=== PATIENT | female | born 1935 | race Hispanic/Latino ===

== ENCOUNTER 2018-04-03 19:35 | Inpatient (IN) | payer MEDICAID, MEDICARE ==
[2018-04-03] MEDS ORDERED: Sodium Chloride 0.9% 1,000 ML IV STA (20:29)
--- NOTE | 2018-04-03 20:32 | ED PDOC ---
HPI: General Adult Time Seen by Provider: 04/03/18 20:09 Chief Complaint (Nursing): GI Problem Chief Complaint (Provider): constipation History Per: Patient, Other (friend) History/Exam Limitations: no limitations Onset/Duration Of Symptoms: Days (1) Current Symptoms Are (Timing): Still Present Additional Complaint(s): 83 y/o female brought in by EMS with friend for evaluation of constipation x 1 day. Patient states her last bowel movement was yesterday, but today feels like she has to go but nothing is coming out. Patient found to be febrile upon arrival, states she was unaware. Patient states she has not been to a doctor in over one year, has homemakers that come to the house daily. Denies nausea/vomiting, cough, congestion, chest pain, shortness of breath, palpitations, abdominal pain, urinary symptoms, recent travel, sick contacts. Past Medical History Reviewed: Historical Data, Nursing Documentation, Vital Signs Vital Signs: Last Vital Signs Temp 102.8 F H 04/03/18 19:40 Pulse 130 H 04/03/18 19:40 Resp 18 04/03/18 19:40 BP 119/91 H 04/03/18 19:40 Pulse Ox 94 L 04/03/18 19:40 - Medical History PMH: HTN, Malignancy (endometrial CA, in remission) Denies: Chronic Kidney Disease - Surgical History Surgical History: Appendectomy, Cholecystectomy Other surgeries: hysterectomy - Family History Family History: States: No Known Family Hx - Living Arrangements Living Arrangements: With Family - Home Medications Home Medications: Ambulatory Orders Medication Instructions Recorded Propranolol [Inderal] 20 mg PO DAILY 01/17/15 Meclizine [Antivert] 12.5 mg PO DAILY 04/04/18 - Allergies Allergies/Adverse Reactions: Allergies Allergy/AdvReac Type Severity Reaction Status Date / Time diphenhydramine Allergy RASH Verified 04/03/18 19:45 [From Benadryl] morphine Allergy RASH Verified 04/03/18 19:45 Penicillins Allergy RASH Verified 04/03/18 19:45 Review of Systems ROS Statement: Except As Marked, All Systems Reviewed And Found Negative Gastrointestinal: Positive for: Constipation Physical Exam - Reviewed Nursing Documentation Reviewed: Yes Vital Signs Reviewed: Yes - Physical Exam Appears: Positive for: Well, Non-toxic, No Acute Distress Head Exam: Positive for: ATRAUMATIC, NORMAL INSPECTION, NORMOCEPHALIC Skin: Positive for: Rash (moderate erythema extending over flexor surface left elbow; mild purulent drainage noted. FROM. Warm to touch) Eye Exam: Positive for: Normal appearance ENT: Positive for: Normal ENT Inspection Cardiovascular/Chest: Positive for: Regular Rate, Rhythm Respiratory: Positive for: Normal Breath Sounds Gastrointestinal/Abdominal: Positive for: Normal Exam, Bowel Sounds, Soft. Negative for: Tenderness Back: Positive for: Normal Inspection, Other (4x2cm erythema to right sacrum, 4x3cm erythema to left sacrum. 0.5 ulceration inner right gluteus) Extremity: Positive for: Normal ROM Neurologic/Psych: Positive for: Alert, Oriented (x3) - Laboratory Results Result Diagrams: 04/03/18 21:40 04/03/18 22:15 - ECG ECG: Positive for: Viewed By Me (reviewed by ED attending) ECG Rhythm: Positive for: Sinus Tachycardia O2 Sat by Pulse Oximetry: 94 - Other Rad obstructive series xray X-Ray: Viewed By Me X-Ray Interpretation: no acute findings - Progress ED Course And Treament: labs, urine, ekg, obstructive series xray, influenza, IV fluids, PO tylenol Case discussed with ED attending Dr. Patel, CT chest/abd/pelvis ordered to r/out PE (malignancy history, tachycardia, hypoxemia, fever), and intra abdominal infection Patient refusing CT; states she has had too many in the past and does not want it. Patient educated on reason for ordering CT and risks if missed. Patient awake, alert, oriented x3. Demonstrates full understanding of these potential risks and still refuses Multiple attempts to straight cath for urine without success. Patient refusing further attempts external catheter applied IV vanco ordered for cellulitis of left arm Patient agreeable for admission but refusing repeat lactic acid at this time Case discussed with Dr. Pierre for admission Disposition - Clinical Impression Clinical Impression: Left arm cellulitis, Sepsis - Patient ED Disposition Is Patient to be Admitted: Yes - Disposition Disposition Time: 04:57 Condition: STABLE
[2018-04-03 21:55] LABS: BASO % 0.1 % (0.0-2.0); EOS % 0.2 % (0.0-4.0); HEMOGLOBIN 14.5 g/dL (12.0-16.0); LYMPH # 0.7 K/uL (1.0-4.3); LYMPH % 3.3 % (20.0-40.0); MEAN CELL VOLUME 87.3 fl (81.0-99.0); MEAN CORPUSCULAR HEMOGLOBIN 29.6 pg (27.0-31.0); MEAN CORPUSCULAR HGB CONC 33.9 g/dL (33.0-37.0); MEAN PLATELET VOLUME 7.9 fl (7.2-11.7); MONO # 0.9 K/uL (0.0-0.8); MONO % 4.6 % (0.0-10.0); NEUT % 91.8 % (50.0-75.0); NRBC % 0.1 % (0.0-0.0); PLATELET COUNT 234 K/uL (130-400); RED CELL DISTRIBUTION WIDTH 15.8 % (11.5-14.5); WHITE BLOOD COUNT 19.7 K/uL (4.8-10.8)
[2018-04-03 22:03] LABS: VENOUS BLOOD GAS BASE EXCESS 6.2 mmol/L (0.0-2.0); VENOUS BLOOD GAS PCO2 42 mmHg (40-60); VENOUS BLOOD GAS PO2 43 mm/Hg (30-55); VENOUS BLOOD PH 7.47 (7.32-7.43)
[2018-04-03 22:37] LABS: ALBUMIN 3.4 g/dL (3.5-5.0); ALT/SGPT 22 U/L (9-52); AST/SGOT 30 U/L (14-36); BLOOD UREA NITROGEN 17 mg/dl (7-17); CALCIUM 8.8 mg/dL (8.4-10.2); GFR NON-AFRICAN AMERICAN > 60
[2018-04-03 22:41] LABS: BANDS 6 % (0-2); LYMPHOCYTE 6 % (20-50); MONOCYTE 7 % (0-10); MYELOCYTE 1 % (0-0); NEUTROPHIL 79 % (42-75); REACTIVE LYMPHOCYTES 1 % (0-0); TOTAL CELLS COUNTED 100
[2018-04-03 22:42] LABS: PLATELET ESTIMATE NORMAL (NORMAL)
[2018-04-03 22:43] LABS: SMUDGE CELLS PRESENT; TOXIC GRANULATION PRESENT
[2018-04-04] MEDS ORDERED: Sodium Chloride 0.9% 1,000 ML IV STA ×2 (00:46→03:21)
[2018-04-04] MEDS ORDERED: Vancomycin 1 g Inj ONE (06:23)
--- NOTE | 2018-04-04 07:07 | CARD ---
APPROVED REPORT Date of service: 04/03/2018 EKG Measurement Heart [id number] [id number] <Conclusion> Sinus tachycardia Possible Inferior infarct, age undetermined Abnormal ECG
[2018-04-04 07:22] LABS: SQUAMOUS EPITHIAL 1 /hpf (0-5); URINE BILIRUBIN NEGATIVE (NEGATIVE); URINE BLOOD MODERATE (NEGATIVE); URINE CLARITY CLEAR (Clear); URINE COLOR AMBER (YELLOW); URINE GLUCOSE (UA) NEG (Normal); URINE LEUKOCYTE ESTERASE MOD Leu/uL (Negative); URINE PROTEIN NEGATIVE (NEGATIVE)
--- NOTE | 2018-04-04 08:10 | CP.PCM.HP ---
<Lauren Alves - Last Filed: 04/04/18 13:10> History of Present Illness - History of Present Illness History of Present Illness: Case seen and examined with Dr Pierre in ED 83 y/o female brought in by EMS and friend for evaluation of constipation x 1 day. Patient states her last bowel movement was yesterday, but today feels like she has to go but nothing is coming out. Patient found to be febrile upon ED arrival and she endorses she was unaware. There is a erythematous area in LUE no tender but warm to touch, pt didnt noticed. She denies nausea/vomiting, chills, cough, congestion, chest pain, shortness of breath, palpitations, abdominal pain, urinary symptoms, recent travel, sick contacts. No recent illness. Patient states she has not been to a doctor in over one year, has homemakers that come to the house daily. Present on Admission - Present on Admission Any Indicators Present on Admission: No Review of Systems - Review of Systems All systems: reviewed and no additional remarkable complaints except (HPI) Past Patient History - Past Medical History & Family History Past Medical History?: Yes - Past Social History Smoking Status: Former Smoker - CARDIAC Hx Hypertension: Yes - PULMONARY Hx Respiratory Disorders: No - NEUROLOGICAL Hx Neurological Disorder: Yes (Cerebral Palsy) - HEENT Hx HEENT Problems: Yes Other/Comment: Glasses - RENAL Hx Chronic Kidney Disease: No - ENDOCRINE/METABOLIC Hx Endocrine Disorders: No - HEMATOLOGICAL/ONCOLOGICAL Hx Blood Disorders: No Hx Blood Transfusions: Yes Hx Blood Transfusion Reaction: No Hx Cancer: Yes (Uterine cancer) Hx Chemotherapy: Yes - INTEGUMENTARY Hx Dermatological Problems: No - MUSCULOSKELETAL/RHEUMATOLOGICAL Hx Musculoskeletal Disorders: Yes Hx Falls: No Hx Unsteady Gait: Yes - GASTROINTESTINAL Hx Gastrointestinal Disorders: Yes Hx Constipation: Yes - GENITOURINARY/GYNECOLOGICAL Hx Genitourinary Disorders: Yes Other/Comment: Endometrial Cancer - PSYCHIATRIC Hx Psychophysiologic Disorder: No Hx Substance Use: No - SURGICAL HISTORY Hx Appendectomy: Yes Hx Cholecystectomy: Yes - ANESTHESIA Hx Anesthesia: Yes Hx Anesthesia Reactions: No Hx Malignant Hyperthermia: No Meds Allergies/Adverse Reactions: Allergies Allergy/AdvReac Type Severity Reaction Status Date / Time diphenhydramine Allergy RASH Verified 04/03/18 19:45 [From Benadryl] morphine Allergy RASH Verified 04/03/18 19:45 Penicillins Allergy RASH Verified 04/03/18 19:45 Physical Exam - Constitutional Appears: No Acute Distress - Head Exam Head Exam: NORMAL INSPECTION - Eye Exam Eye Exam: EOMI - Respiratory Exam Respiratory Exam: Clear to Auscultation Bilateral - Cardiovascular Exam Cardiovascular Exam: REGULAR RHYTHM, +S1, +S2 - GI/Abdominal Exam GI & Abdominal Exam: Normal Bowel Sounds, Soft. absent: Distended, Tenderness - Extremities Exam Extremities exam: Negative for: pedal edema - Neurological Exam Neurological exam: Alert, Oriented x3 - Skin Skin Exam: Dry, Warm Additional comments: moderate erythema extending over flexor surface left elbow; mild purulent drainage noted, warm to touch, nontender. Results - Vital Signs Recent Vital Signs: Last Vital Signs Temp 98.2 F 04/04/18 07:56 Pulse 82 04/04/18 07:56 Resp 16 04/04/18 07:56 BP 153/86 H 04/04/18 07:56 Pulse Ox 100 04/04/18 07:56 - Labs Result Diagrams: 04/03/18 21:40 04/03/18 22:15 Labs: Laboratory Results - last 24 hr 04/03/18 04/03/18 04/03/18 21:40 21:40 22:00 WBC 19.7 H D RBC 4.90 Hgb 14.5 Hct 42.8 MCV 87.3 D MCH 29.6 MCHC 33.9 RDW 15.8 H Plt Count 234 D MPV 7.9 Neut % (Auto) 91.8 H Lymph % (Auto) 3.3 L Woods % (Auto) 4.6 Eos % (Auto) 0.2 Baso % (Auto) 0.1 Neut # (Auto) 18.0 H Lymph # (Auto) 0.7 L Woods # (Auto) 0.9 H Eos # (Auto) 0.0 Baso # (Auto) 0.0 Neutrophils % (Manual) 79 H Band Neutrophils % 6 H Lymphocytes % (Manual) 6 L Reactive Lymphs % 1 H Monocytes % (Manual) 7 Myelocytes % 1 H Smudge Cells Present Toxic Granulation Present Platelet Estimate Normal Macrocytosis (manual) Slight pO2 43 VBG pH 7.47 H VBG pCO2 42 VBG HCO3 29.3 VBG Total CO2 31.9 H VBG O2 Sat (Calc) 86.4 H VBG Base Excess 6.2 H VBG Potassium 4.3 Sodium 138.0 Chloride 103.0 Glucose 175 H Lactate 2.1 FiO2 21.0 Potassium Carbon Dioxide Anion Gap BUN Creatinine Est GFR ( Amer) Est GFR (Non-Af Amer) Random Glucose Calcium Total Bilirubin AST ALT Alkaline Phosphatase Total Protein Albumin Globulin Albumin/Globulin Ratio Venous Blood Potassium 4.3 Urine Color Urine Clarity Urine pH Ur Specific Ingalls Urine Protein Urine Glucose (UA) Urine Ketones Urine Blood Urine Nitrate Urine Bilirubin Urine Urobilinogen Ur Leukocyte Esterase Urine RBC (Auto) Urine Microscopic WBC Ur Squamous Epith Cells Influenza Typ A,B (EIA) Negative for flu a/b 04/03/18 04/04/18 22:15 06:54 WBC RBC Hgb Hct MCV MCH MCHC RDW Plt Count MPV Neut % (Auto) Lymph % (Auto) Woods % (Auto) Eos % (Auto) Baso % (Auto) Neut # (Auto) Lymph # (Auto) Woods # (Auto) Eos # (Auto) Baso # (Auto) Neutrophils % (Manual) Band Neutrophils % Lymphocytes % (Manual) Reactive Lymphs % Monocytes % (Manual) Myelocytes % Smudge Cells Toxic Granulation Platelet Estimate Macrocytosis (manual) pO2 VBG pH VBG pCO2 VBG HCO3 VBG Total CO2 VBG O2 Sat (Calc) VBG Base Excess VBG Potassium Sodium 139 Chloride 106 Glucose Lactate FiO2 Potassium 3.5 L Carbon Dioxide 25 Anion Gap 12 BUN 17 Creatinine 0.9 Est GFR ( Amer) > 60 Est GFR (Non-Af Amer) > 60 Random Glucose 160 H Calcium 8.8 Total Bilirubin 0.8 AST 30 ALT 22 Alkaline Phosphatase 83 Total Protein 6.9 Albumin 3.4 L Globulin 3.5 Albumin/Globulin Ratio 1.0 Venous Blood Potassium Urine Color Sushila Urine Clarity Clear Urine pH 5.0 Ur Specific Ingalls 1.018 Urine Protein Negative Urine Glucose (UA) Neg Urine Ketones Negative Urine Blood Moderate Urine Nitrate Positive H Urine Bilirubin Negative Urine Urobilinogen 2.0 H Ur Leukocyte Esterase Mod Urine RBC (Auto) 8 H Urine Microscopic WBC 17 H Ur Squamous Epith Cells 1 Influenza Typ A,B (EIA) Assessment & Plan - Assessment and Plan (Free Text) Assessment: 83 yo Female with PMH of HTN admitted due to LUE cellulitis and sepsis Plan: - Febrile, tachycardia, BP wnl - WBC 19.7, lactate 2.1 - abd XR negative for obstruction - IV fluids, continue IV abx - f/u cultures and labs in am - f/u echo - continue home meds - rest of plan as ordered <Maulik Pierre - Last Filed: 04/06/18 15:50> Results - Vital Signs Recent Vital Signs: Last Vital Signs Temp 97.8 F 04/06/18 07:59 Pulse 88 04/06/18 07:59 Resp 19 04/06/18 07:59 BP 149/82 04/06/18 07:59 Pulse Ox 97 04/06/18 07:59 - Labs Result Diagrams: 04/06/18 05:55 04/06/18 05:55 Labs: Laboratory Results - last 24 hr 04/06/18 04/06/18 05:55 05:55 WBC 7.9 RBC 4.72 Hgb 13.9 Hct 42.3 MCV 89.5 MCH 29.4 MCHC 32.8 L RDW 15.8 H Plt Count 169 Sodium 141 Potassium 4.2 Chloride 108 H Carbon Dioxide 21 L Anion Gap 16 BUN 13 Creatinine 0.7 Est GFR ( Amer) > 60 Est GFR (Non-Af Amer) > 60 Random Glucose 89 Calcium 8.1 L Assessment & Plan - Assessment and Plan (Free Text) Assessment: Patient was personally seen and examined by me in rounds with residents. Available labs and diagnostic data reviewed. Case, Patient's condition and management plan discussed with residents in rounds . Agree with resident's progress note. Plan: As ordered.
[2018-04-04] MEDS: Enoxaparin 40 mg Syringe SC SCH (10:04)
--- NOTE | 2018-04-04 10:37 | RAD ---
Date of service: 04/03/2018 PROCEDURE: Radiographs of the chest and abdomen (obstructive series) HISTORY: constipation COMPARISON: No prior. TECHNIQUE: AP radiograph of the chest, with upright and supine radiographs of the abdomen. FINDINGS: CHEST: Lungs: Low lung volumes. Cardiovascular: Aortic atherosclerotic calcifications. Normal size heart. No pulmonary vascular congestion. Pleura: No pleural fluid. No pneumothorax. Other findings: Left subclavian access chest port with tip at the cavoatrial junction. ABDOMEN AND PELVIS: Bowel: Unremarkable bowel gas pattern. No evidence of mechanical obstruction. Free air: None. Bones: Degenerative changes. Other findings: Right upper quadrant and pelvic surgical clips. IMPRESSION: Unremarkable radiographs of chest and abdomen. No evidence of mechanical bowel obstruction.
--- NOTE | 2018-04-04 12:15 | CARD ---
APPROVED REPORT Date of service: 04/04/2018 EXAM: Two-dimensional and M-mode echocardiogram with Doppler and color Doppler. Other Information Quality : FairRhythm : NSR Technically limited study due to Poor echo windows,due to pt Habitus INDICATION Infection: 2D DIMENSIONS IVSd0.69 (0.7-1.1cm)LVDd2.61 (3.9-5.9cm) LVOT Diameter1.51 (1.8-2.4cm)PWd0.53 (0.7-1.1cm) IVSs0.84 (0.8-1.2cm)LVDs2.36 (2.5-4.0cm) FS (%) 9.7 %PWs0.85 (0.8-1.2cm) M-Mode DIMENSIONS Left Atrium (MM)2.93 (2.5-4.0cm)IVSd0.75 (0.7-1.1cm) Aortic Root2.75 (2.2-3.7cm)LVDd3.04 (4.0-5.6cm) Aortic Cusp Exc.1.42 (1.5-2.0cm)PWd0.77 (0.7-1.1cm) IVSs1.06 cmFS (%) 38 % LVDs1.88 (2.0-3.8cm)PWs1.03 cm Mitral Valve MV E Wmncouze23.8cm/sMV DECEL [id number] A Zhidzxxa03.4cm/s MV [id number]/A ratio1.3MVA (PHT)4.58cm2 TDI E/Lateral E'0.0E/Medial E'0.0 LEFT VENTRICLE The left ventricle is normal size. There is normal left ventricular wall thickness. The left ventricular systolic function is normal. The estimated ejection fraction is 55-60% No regional wall motion abnormalities noted.. Transmitral Doppler flow pattern is Grade I-abnormal relaxation pattern. No left ventricle thrombus noted on this study. There is no ventricular septal defect visualized. There is no left ventricular aneurysm. There is no mass noted in the left ventricle. RIGHT VENTRICLE The right ventricle is normal size. There is normal right ventricular wall thickness. The right ventricular systolic function is normal. ATRIA The left atrium size is normal. The right atrium size is normal. The interatrial septum is intact with no evidence for an atrial septal defect. AORTIC VALVE The aortic valve is normal in structure. No aortic regurgitation is present. There is no aortic valvular stenosis. There is no aortic valvular vegetation. MITRAL VALVE The mitral valve is normal in structure. There is no evidence of mitral valve prolapse. There is no mitral valve stenosis. There is mild mitral valve regurgitation noted. TRICUSPID VALVE The tricuspid valve is normal in structure. There is no tricuspid valve regurgitation noted. There is no tricuspid valve prolapse or vegetation. There is no tricuspid valve stenosis. PULMONIC VALVE The pulmonary valve is normal in structure. There is no pulmonic valvular regurgitation. There is no pulmonic valvular stenosis. GREAT VESSELS The aortic root is normal in size. The ascending aorta is normal in size. The pulmonary artery is normal. The IVC is normal in size and collapses >50% with inspiration. PERICARDIAL EFFUSION There is no pericardial effusion. There is no pleural effusion. <Conclusion> Technically difficult study The estimated ejection fraction is 55-60% Transmitral Doppler flow pattern is Grade I-abnormal relaxation pattern. The left atrium size is normal. There is mild mitral valve regurgitation noted. No evidence of vegetations on this study. Correlate clinically.
[2018-04-04 13:59] VITALS: BMI 26.5
[2018-04-05 06:31] LABS: BASO # 0.1 K/uL (0.0-0.2); BASO % 0.7 % (0.0-2.0); EOS # 0.2 K/uL (0.0-0.7); EOS % 2.8 % (0.0-4.0); HEMOGLOBIN 12.9 g/dL (12.0-16.0); LYMPH # 1.5 K/uL (1.0-4.3); LYMPH % 19.9 % (20.0-40.0); MEAN CELL VOLUME 89.2 fl (81.0-99.0); MEAN CORPUSCULAR HEMOGLOBIN 29.7 pg (27.0-31.0); MEAN CORPUSCULAR HGB CONC 33.3 g/dL (33.0-37.0); MEAN PLATELET VOLUME 7.3 fl (7.2-11.7); MONO # 0.7 K/uL (0.0-0.8); MONO % 9.5 % (0.0-10.0); NEUT # 5.2 K/uL (1.8-7.0); NEUT % 67.1 % (50.0-75.0); NRBC % 0.1 % (0.0-0.0); RBC 4.34 Mil/uL (3.80-5.20); RED CELL DISTRIBUTION WIDTH 15.6 % (11.5-14.5); WHITE BLOOD COUNT 7.7 K/uL (4.8-10.8)
[2018-04-05 06:48] LABS: ALB/GLOB RATIO 0.9 (1.0-2.1); ALT/SGPT 21 U/L (9-52); AST/SGOT 26 U/L (14-36); BLOOD UREA NITROGEN 13 mg/dl (7-17); CALCIUM 8.1 mg/dL (8.4-10.2); GFR NON-AFRICAN AMERICAN > 60
--- NOTE | 2018-04-05 07:23 | CP.PCM.PN ---
<MartinezPradeep - Last Filed: 04/05/18 18:41> Subjective - Date & Time of Evaluation Date of Evaluation: 04/05/18 Time of Evaluation: 06:55 - Subjective Subjective: 83 y/o F was seen and examined with Dr Pierre by bedside. Pt reports feeling well, denies left arm pain, chest pain, SOB, nausea, or vomiting. Pt afebrile with no acute events overnight. Pt reported diarrhea for the last 2 days but pt endorses that she has intermittent diarrhea episodes every week. Objective - Vital Signs/Intake and Output Vital Signs (last 24 hours): Temp Pulse Resp BP Pulse Ox 97.2 F L 84 20 137/66 99 04/05/18 00:04 04/05/18 00:04 04/05/18 00:04 04/05/18 00:04 04/05/18 00:04 - Medications Medications: Current Medications Acetaminophen (Tylenol 325mg Tab) 650 mg PO Q6 PRN PRN Reason: Fever >100.4 F Enoxaparin Sodium (Lovenox) 40 mg SC DAILY [facility]; Protocol Last Admin: 04/04/18 10:04 Dose: 40 mg Vancomycin HCl 1 gm/ Sodium (Chloride) 250 mls @ 166.667 mls/hr IVPB Q12@0600,1800 [facility]; Protocol Last Admin: 04/05/18 06:23 Dose: 166.667 mls/hr Meclizine HCl (Antivert) 12.5 mg PO DAILY [facility] Last Admin: 04/04/18 18:44 Dose: 12.5 mg Propranolol HCl (Inderal) 20 mg PO DAILY [facility] Last Admin: 04/04/18 09:09 Dose: 20 mg - Labs Labs: 04/05/18 04:55 04/05/18 04:55 - Constitutional Appears: No Acute Distress - Head Exam Head Exam: ATRAUMATIC, NORMAL INSPECTION - Eye Exam Eye Exam: EOMI - ENT Exam ENT Exam: Mucous Membranes Dry - Neck Exam Neck Exam: Full ROM. absent: Tenderness - Respiratory Exam Respiratory Exam: NORMAL BREATHING PATTERN. absent: Rhonchi, Wheezes, Respiratory Distress - Cardiovascular Exam Cardiovascular Exam: REGULAR RHYTHM, +S1, +S2 - GI/Abdominal Exam GI & Abdominal Exam: Soft, Normal Bowel Sounds. absent: Distended, Guarding, Rigid, Tenderness - Extremities Exam Extremities Exam: absent: Calf Tenderness - Neurological Exam Neurological Exam: Alert, Awake - Skin Additional comments: Left cubital area: presence of ~7cm diameter erythema taht is non-tender, warm to touch and seems not extending since yesterday. Assessment and Plan - Assessment and Plan (Free Text) Assessment: 83 yo Female with PMH of HTN admitted due to LUE cellulitis and sepsis. PLAN: --Afebrile, stable VS --WBC trended down, WNL today. --Continue with Vancomycin --Probiotics for GI prophylaxis. --Blood Cx with NO growth in 24 hrs --Echocardiogram shows NO vegetations. --Rest of plan as ordered Case discussed with Dr Pierre. <Maulik Pierre - Last Filed: 04/06/18 15:49> Objective - Vital Signs/Intake and Output Vital Signs (last 24 hours): Temp Pulse Resp BP Pulse Ox 97.8 F 88 19 149/82 97 04/06/18 07:59 04/06/18 07:59 04/06/18 07:59 04/06/18 07:59 04/06/18 07:59 - Medications Medications: Current Medications Acetaminophen (Tylenol 325mg Tab) 650 mg PO Q6 PRN PRN Reason: Fever >100.4 F Dimethicone (Proshield Plus Skin Protectant) 1 applic TOP Q8 PRN PRN Reason: Excoriation Last Admin: 04/06/18 08:21 Dose: 1 applic Enoxaparin Sodium (Lovenox) 40 mg SC DAILY [facility]; Protocol Last Admin: 04/06/18 08:21 Dose: 40 mg Vancomycin HCl 1 gm/ Sodium (Chloride) 250 mls @ 166.667 mls/hr IVPB Q12@0600,1800 [facility]; Protocol Last Admin: 04/06/18 05:50 Dose: 166.667 mls/hr Meropenem 500 mg/ Sodium (Chloride) 100 mls @ 100 mls/hr IVPB Q8 [facility]; Protocol Last Admin: 04/06/18 08:20 Dose: 100 mls/hr Lactobacillus Acidophilus (Bacid Acidophilus) 1 cap PO BID [facility] Last Admin: 04/06/18 08:21 Dose: 1 cap Meclizine HCl (Antivert) 12.5 mg PO DAILY [facility] Last Admin: 04/06/18 08:22 Dose: 12.5 mg Propranolol HCl (Inderal) 20 mg PO DAILY [facility] Last Admin: 04/06/18 08:22 Dose: 20 mg - Labs Labs: 04/06/18 05:55 04/06/18 05:55 Assessment and Plan - Assessment and Plan (Free Text) Assessment: Patient was personally seen and examined by me in rounds with residents. Available labs and diagnostic data reviewed. Case, Patient's condition and management plan discussed with residents in r ounds. Agree with resident's progress note. Plan: As ordered.
[2018-04-05] MEDS: Lactobacillus Acidophilus 500 MU Cap PO SCH ×2 (08:25→16:04)
[2018-04-05] MEDS: Enoxaparin 40 mg Syringe SC SCH (08:26)
[2018-04-05] MEDS: Meropenem 500 MG in Sodium Chloride 0.9% 100 ML IVPB SCH (16:02)
--- NOTE | 2018-04-05 18:06 | CP.PCM.CON ---
Past Patient History - Past Medical History & Family History Past Medical History?: Yes - Past Social History Smoking Status: Never Smoked - CARDIAC Hx Hypertension: Yes - PULMONARY Hx Respiratory Disorders: No - NEUROLOGICAL Hx Neurological Disorder: Yes (Cerebral Palsy) - HEENT Hx HEENT Problems: Yes Other/Comment: Glasses - RENAL Hx Chronic Kidney Disease: No - ENDOCRINE/METABOLIC Hx Endocrine Disorders: No - HEMATOLOGICAL/ONCOLOGICAL Hx Blood Disorders: No Hx Blood Transfusions: Yes Hx Blood Transfusion Reaction: No Hx Cancer: Yes (Uterine cancer) Hx Chemotherapy: Yes - INTEGUMENTARY Hx Dermatological Problems: No - MUSCULOSKELETAL/RHEUMATOLOGICAL Hx Musculoskeletal Disorders: Yes Hx Falls: No Hx Unsteady Gait: Yes - GASTROINTESTINAL Hx Gastrointestinal Disorders: Yes Hx Constipation: Yes - GENITOURINARY/GYNECOLOGICAL Hx Genitourinary Disorders: Yes Other/Comment: Endometrial Cancer - PSYCHIATRIC Hx Psychophysiologic Disorder: No Hx Substance Use: No - SURGICAL HISTORY Hx Appendectomy: Yes Hx Cholecystectomy: Yes - ANESTHESIA Hx Anesthesia: Yes Hx Anesthesia Reactions: No Hx Malignant Hyperthermia: No Meds Allergies/Adverse Reactions: Allergies Allergy/AdvReac Type Severity Reaction Status Date / Time diphenhydramine Allergy RASH Verified 04/03/18 19:45 [From Benadryl] morphine Allergy RASH Verified 04/03/18 19:45 Penicillins Allergy RASH Verified 04/03/18 19:45 - Medications Medications: Current Medications Acetaminophen (Tylenol 325mg Tab) 650 mg PO Q6 PRN PRN Reason: Fever >100.4 F Dimethicone (Proshield Plus Skin Protectant) 1 applic TOP Q8 PRN PRN Reason: Excoriation Enoxaparin Sodium (Lovenox) 40 mg SC DAILY [facility]; Protocol Last Admin: 04/05/18 08:26 Dose: 40 mg Vancomycin HCl 1 gm/ Sodium (Chloride) 250 mls @ 166.667 mls/hr IVPB Q12@0600,1800 [facility]; Protocol Last Admin: 04/05/18 17:00 Dose: 166.667 mls/hr Meropenem 500 mg/ Sodium (Chloride) 100 mls @ 100 mls/hr IVPB Q8 [facility]; Protocol Last Admin: 04/05/18 16:02 Dose: 100 mls/hr Lactobacillus Acidophilus (Bacid Acidophilus) 1 cap PO BID [facility] Last Admin: 04/05/18 16:04 Dose: 1 cap Meclizine HCl (Antivert) 12.5 mg PO DAILY [facility] Last Admin: 04/05/18 08:26 Dose: 12.5 mg Propranolol HCl (Inderal) 20 mg PO DAILY [facility] Last Admin: 04/05/18 08:26 Dose: 20 mg Results - Vital Signs Recent Vital Signs: Last Vital Signs Temp 97.9 F 04/05/18 16:30 Pulse 79 04/05/18 16:30 Resp 20 04/05/18 16:30 BP 138/78 04/05/18 16:30 Pulse Ox 99 04/05/18 16:30 - Labs Result Diagrams: 04/05/18 04:55 04/05/18 04:55 Labs: Laboratory Results - last 24 hr 04/05/18 04/05/18 04:55 04:55 WBC 7.7 D RBC 4.34 Hgb 12.9 Hct 38.7 MCV 89.2 MCH 29.7 MCHC 33.3 RDW 15.6 H Plt Count 166 MPV 7.3 Neut % (Auto) 67.1 Lymph % (Auto) 19.9 L Wilson % (Auto) 9.5 Eos % (Auto) 2.8 Baso % (Auto) 0.7 Neut # (Auto) 5.2 Lymph # (Auto) 1.5 Wilson # (Auto) 0.7 Eos # (Auto) 0.2 Baso # (Auto) 0.1 Sodium 143 Potassium 4.4 Chloride 109 H Carbon Dioxide 24 Anion Gap 14 BUN 13 Creatinine 0.8 Est GFR ( Amer) > 60 Est GFR (Non-Af Amer) > 60 Random Glucose 87 Calcium 8.1 L Total Bilirubin 0.4 AST 26 ALT 21 Alkaline Phosphatase 56 Total Protein 6.3 Albumin 3.0 L Globulin 3.3 Albumin/Globulin Ratio 0.9 L
[2018-04-06] MEDS: Meropenem 500 MG in Sodium Chloride 0.9% 100 ML IVPB SCH ×3 (00:35→16:27)
[2018-04-06 06:46] LABS: BLOOD UREA NITROGEN 13 mg/dl (7-17); CALCIUM 8.1 mg/dL (8.4-10.2); GFR NON-AFRICAN AMERICAN > 60
[2018-04-06 06:49] LABS: HEMOGLOBIN 13.9 g/dL (12.0-16.0); MEAN CELL VOLUME 89.5 fl (81.0-99.0); MEAN CORPUSCULAR HEMOGLOBIN 29.4 pg (27.0-31.0); MEAN CORPUSCULAR HGB CONC 32.8 g/dL (33.0-37.0); RBC 4.72 Mil/uL (3.80-5.20); RED CELL DISTRIBUTION WIDTH 15.8 % (11.5-14.5); WHITE BLOOD COUNT 7.9 K/uL (4.8-10.8)
--- NOTE | 2018-04-06 07:16 | CP.PCM.PN ---
<Pradeep Henriquez - Last Filed: 04/06/18 08:04> Subjective - Date & Time of Evaluation Date of Evaluation: 04/06/18 Time of Evaluation: 06:59 - Subjective Subjective: 83 y/o f was seen and examined by bedside with Dr Pierre. Pt reports feeling well, denied fever, chills, abdominal pain, nausea or vomiting. Left arm is painless. Pt afebrile, tolerating PO with NO acute events overnight. --Wound culture and Blood culture are showing Gram Negative Rods. Objective - Vital Signs/Intake and Output Vital Signs (last 24 hours): Temp Pulse Resp BP Pulse Ox 99.3 F 88 18 152/84 H 96 04/06/18 00:28 04/06/18 00:28 04/06/18 00:28 04/06/18 00:28 04/06/18 00:28 - Medications Medications: Current Medications Acetaminophen (Tylenol 325mg Tab) 650 mg PO Q6 PRN PRN Reason: Fever >100.4 F Dimethicone (Proshield Plus Skin Protectant) 1 applic TOP Q8 PRN PRN Reason: Excoriation Enoxaparin Sodium (Lovenox) 40 mg SC DAILY [facility]; Protocol Last Admin: 04/05/18 08:26 Dose: 40 mg Vancomycin HCl 1 gm/ Sodium (Chloride) 250 mls @ 166.667 mls/hr IVPB Q12@0600,1800 [facility]; Protocol Last Admin: 04/06/18 05:50 Dose: 166.667 mls/hr Meropenem 500 mg/ Sodium (Chloride) 100 mls @ 100 mls/hr IVPB Q8 [facility]; Protocol Last Admin: 04/06/18 00:35 Dose: 100 mls/hr Lactobacillus Acidophilus (Bacid Acidophilus) 1 cap PO BID [facility] Last Admin: 04/05/18 16:04 Dose: 1 cap Meclizine HCl (Antivert) 12.5 mg PO DAILY [facility] Last Admin: 04/05/18 08:26 Dose: 12.5 mg Propranolol HCl (Inderal) 20 mg PO DAILY [facility] Last Admin: 04/05/18 08:26 Dose: 20 mg - Labs Labs: 04/06/18 05:55 04/06/18 05:55 - Additional Findings Additional findings: - Constitutional Appears: No Acute Distress - Head Exam Head Exam: ATRAUMATIC, NORMAL INSPECTION - Eye Exam Eye Exam: EOMI - ENT Exam ENT Exam: Mucous Membranes Dry - Neck Exam Neck Exam: Full ROM. absent: Tenderness - Respiratory Exam Respiratory Exam: NORMAL BREATHING PATTERN. absent: Rhonchi, Wheezes, Respiratory Distress - Cardiovascular Exam Cardiovascular Exam: REGULAR RHYTHM, +S1, +S2 - GI/Abdominal Exam GI & Abdominal Exam: Soft, Normal Bowel Sounds. absent: Distended, Guarding, Rigid, Tenderness - Extremities Exam Extremities Exam: absent: Calf Tenderness - Neurological Exam Neurological Exam: Alert, Awake - Skin Additional comments: Left cubital area: presence of ~6 cm diameter erythema taht is non-tender, warm to touch and seems not extending since yesterday. Assessment and Plan - Assessment and Plan (Free Text) Assessment: 83 yo Female with PMH of HTN admitted due to LUE cellulitis and sepsis. PLAN: --Afebrile, stable VS --WBC trended down, WNL today. --Continue with Vancomycin --Meropenem was added since blood culture and wound culture are showing Gram neg rods. --ID consult, Dr Wolfe, ordered. --Probiotics for GI prophylaxis. --Echocardiogram shows NO vegetations. --Rest of plan as ordered Case discussed with Dr Pierre. <Maulik Pierre - Last Filed: 04/06/18 15:41> Objective - Vital Signs/Intake and Output Vital Signs (last 24 hours): Temp Pulse Resp BP Pulse Ox 97.8 F 88 19 149/82 97 04/06/18 07:59 04/06/18 07:59 04/06/18 07:59 04/06/18 07:59 04/06/18 07:59 - Medications Medications: Current Medications Acetaminophen (Tylenol 325mg Tab) 650 mg PO Q6 PRN PRN Reason: Fever >100.4 F Dimethicone (Proshield Plus Skin Protectant) 1 applic TOP Q8 PRN PRN Reason: Excoriation Last Admin: 04/06/18 08:21 Dose: 1 applic Enoxaparin Sodium (Lovenox) 40 mg SC DAILY [facility]; Protocol Last Admin: 04/06/18 08:21 Dose: 40 mg Vancomycin HCl 1 gm/ Sodium (Chloride) 250 mls @ 166.667 mls/hr IVPB Q12@0600,1800 [facility]; Protocol Last Admin: 04/06/18 05:50 Dose: 166.667 mls/hr Meropenem 500 mg/ Sodium (Chloride) 100 mls @ 100 mls/hr IVPB Q8 [facility]; Protocol Last Admin: 04/06/18 08:20 Dose: 100 mls/hr Lactobacillus Acidophilus (Bacid Acidophilus) 1 cap PO BID [facility] Last Admin: 04/06/18 08:21 Dose: 1 cap Meclizine HCl (Antivert) 12.5 mg PO DAILY [facility] Last Admin: 04/06/18 08:22 Dose: 12.5 mg Propranolol HCl (Inderal) 20 mg PO DAILY [facility] Last Admin: 04/06/18 08:22 Dose: 20 mg - Labs Labs: 04/06/18 05:55 04/06/18 05:55 Assessment and Plan - Assessment and Plan (Free Text) Assessment: Patient was personally seen and examined by me in rounds with residents. Available labs and diagnostic data reviewed. Case, Patient's condition and management plan discussed with residents in rounds. Agree with resident's progress note. Plan: As ordered.
[2018-04-06] MEDS: Lactobacillus Acidophilus 500 MU Cap PO SCH ×2 (08:21→16:27)
[2018-04-06] MEDS: Proshield Plus GEL TOP PRN (08:21)
[2018-04-06] MEDS: Enoxaparin 40 mg Syringe SC SCH (08:21)
--- NOTE | 2018-04-06 14:17 | CP.PCM.CON ---
History of Present Illness - History of Present Illness History of Present Illness: 83 y/o female with Hx of Cerebral Palsy brought in by EMS and friend for evaluation of constipation x 1 day. There is a erythematous area in LUE no tender but warm to touch, pt didnt noticed. has port in place left chest x many years septic work up revealed + blood cultures IV antibiotics ordered for this Review of Systems - Review of Systems All systems: reviewed and no additional remarkable complaints except - Constitutional Constitutional: As Per HPI - EENT Eyes: absent: As Per HPI, Blind Spots, Blurred Vision, Change in Vision, Decreased Night Vision, Diplopia, Discharge, Dry Eye, Exophthalmos, Floaters, Irritation, Itchy Eyes, Loss of Peripheral Vision, Pain, Photophobia, Requires Corrective Lenses, Sees Flashes, Spots in Vision, Tunnel Vision, Other Visual Disturbances, Loss of Vision, Other Ears: absent: As Per HPI, Decreased Hearing, Ear Discharge, Ear Pain, Tinnitus, Abnormal Hearing, Disequilibrium, Dizziness, Other Nose/Mouth/Throat: absent: As Per HPI, Epistaxis, Nasal Congestion, Nasal Discharge, Nasal Obstruction, Nasal Trauma, Nose Pain, Post Nasal Drip, Sinus Pain, Sinus Pressure, Bleeding Gums, Change in Voice, Dental Pain, Dry Mouth, Dysphagia, Halitosis, Hoarsness, Lip Swelling, Mouth Lesions, Mouth Pain, Odynophagia, Sore Throat, Throat Swelling, Tongue Swelling, Facial Pain, Neck Pain, Neck Mass, Other - Breasts Breasts: absent: As Per HPI, Change in Shape, Mass, Pain, Nipple Discharge, Nipple Inversion, Skin Changes, Swelling, Other - Cardiovascular Cardiovascular: absent: As Per HPI, Acrocyanosis, Chest Pain, Chest Pain at Rest, Chest Pain with Activity, Claudication, Diaphoresis, Dyspnea, Dyspnea on E xertion, Edema, Irregular Heart Rhythm, Pain Radiating to Arm/Neck/Jaw, Leg Edema, Leg Ulcers, Lightheadedness, Orthopnea, Palpitations, Paroxysmal Nocturnal Dyspnea, Pedal Edema, Radiating Pain, Rapid Heart Rate, Slow Heart Rate, Syncope, Other - Respiratory Respiratory: absent: As Per HPI, Cough, Dyspnea, Hemoptysis, Dyspnea on Exertion, Wheezing, Snoring, Stridor, Pain on Inspiration, Chest Congestion, Excessive Mucous Production, Change in Mucous Color, Pain with Coughing, Other - Gastrointestinal Gastrointestinal: absent: As Per HPI, Abdominal Pain, Belching, Bloating, Change in Bowel Habits, Change in Stool Character, Coffee Ground Emesis, Constipation, Cramping, Diarrhea, Dyspepsia, Dysphagia, Early Satiety, Excessive Flatus, Fecal Incontinence, Heartburn, Hematemesis, Hematochezia, Loose Stools, Melena, Nausea, Odynophagia, Temesmus, Vomiting, Other - Genitourinary Genitourinary: absent: As Per HPI, Change in Urinary Stream, Difficulty Urinating, Dysuria, Flank Pain, Hematuria, Pyuria, Nocturia, Urinary Incontinence, Urinary Frequency, Urinary Hesitance, Urinary Urgency, Voiding Freq/Small Amts, Freq UTI, Hx Renal/Bladder Calculi, Hx /Renal Surgery, Bladd er Distension, Other - Reproductive: Female Reproductive:Female: absent: As Per HPI, Amenorrhea, Amenorrhea/ Control, Currently Menstual, Cycle <21 Days, Cycle >35 Days, Cycle Variable, Menses 1-7 Days, Menses >/= 8 Days, Menses Variable, Cycle > 4 Weeks Between, No Menses for 6 Months, Heavy Menses, Light Menses, Normal Menses, Spotting Between Cycles, S/P Hysterectomy, Menopausal, Post Menopausal, Premenarche, Abnormal Vaginal Bleeding, Dysmenorrhea, Dyspareunia, Genital Lesions, Genital Pruritis, Pelvic Pain, Prolapse Symptoms, Sexual Dysfunction, Vaginal Discharge, Vaginal Dryness, Vaginal Odor, Vaginal Pruritis, Other - Menstruation Menstruation: absent: As Per HPI, Amenorrhea, Amenorrhea/ Control, Currently Menstual, Cycle <21 Days, Cycle >35 Days, Cycle Variable, Menses 1-7 Days, Menses >/= 8 Days, Menses Variable, Cycle > 4 Weeks Between, No Menses for 6 Months, Heavy Menses, Light Menses, Normal Menses, Spotting Between Cycles, S/P Hysterectomy, Menopausal, Post Menopausal, Premenarche, Abnormal Vaginal Bleeding, Dysmenorrhea, Other - Musculoskeletal Musculoskeletal: As Per HPI - Integumentary Integumentary: As Per HPI - Neurological Neurological: As Per HPI - Psychiatric Psychiatric: absent: As Per HPI, Abnormal Sleep Pattern, Anhedonia, Anxiety, Auditory Hallucinations, Behavioral Changes, Change in Appetite, Change in Libi do, Confusion, Depression, Difficulty Concentrating, Hallucinations, Homicidal Ideation, Hopelessness, Irritability, Memory Loss, Mood Swings, Panic Attacks, Paranoia, Suicidal Ideation, Visual Hallucinations, Tactile Hallucinations, Other - Endocrine Endocrine: absent: As Per HPI, Change in Body Appearance, Change in Libido, Cold Intolorance, Deepening of Voice, Excessive Sweating, Fatigue, Flushing, Heat Intolorance, Increase in Ring/Shoe/Hat Size, Palpitations, Polydipsia, Polyphagia, Polyuria, Other - Hematologic/Lymphatic Hematologic: absent: As Per HPI, Easy Bleeding, Easy Bruising, Lymphadenopathy, Other Past Patient History - Past Medical History & Family History Past Medical History?: Yes - Past Social History Smoking Status: Never Smoked - CARDIAC Hx Hypertension: Yes - PULMONARY Hx Respiratory Disorders: No - NEUROLOGICAL Hx Neurological Disorder: Yes (Cerebral Palsy) - HEENT Hx HEENT Problems: Yes Other/Comment: Glasses - RENAL Hx Chronic Kidney Disease: No - ENDOCRINE/METABOLIC Hx Endocrine Disorders: No - HEMATOLOGICAL/ONCOLOGICAL Hx Blood Disorders: No Hx Blood Transfusions: Yes Hx Blood Transfusion Reaction: No Hx Cancer: Yes (Uterine cancer) Hx Chemotherapy: Yes - INTEGUMENTARY Hx Dermatological Problems: No - MUSCULOSKELETAL/RHEUMATOLOGICAL Hx Musculoskeletal Disorders: Yes Hx Falls: No Hx Unsteady Gait: Yes - GASTROINTESTINAL Hx Gastrointestinal Disorders: Yes Hx Constipation: Yes - GENITOURINARY/GYNECOLOGICAL Hx Genitourinary Disorders: Yes Other/Comment: Endometrial Cancer - PSYCHIATRIC Hx Psychophysiologic Disorder: No Hx Substance Use: No - SURGICAL HISTORY Hx Appendectomy: Yes Hx Cholecystectomy: Yes - ANESTHESIA Hx Anesthesia: Yes Hx Anesthesia Reactions: No Hx Malignant Hyperthermia: No Meds Allergies/Adverse Reactions: Allergies Allergy/AdvReac Type Severity Reaction Status Date / Time diphenhydramine Allergy RASH Verified 04/03/18 19:45 [From Benadryl] morphine Allergy RASH Verified 04/03/18 19:45 Penicillins Allergy RASH Verified 04/03/18 19:45 - Medications Medications: Current Medications Acetaminophen (Tylenol 325mg Tab) 650 mg PO Q6 PRN PRN Reason: Fever >100.4 F Dimethicone (Proshield Plus Skin Protectant) 1 applic TOP Q8 PRN PRN Reason: Excoriation Last Admin: 04/06/18 08:21 Dose: 1 applic Enoxaparin Sodium (Lovenox) 40 mg SC DAILY [facility]; Protocol Last Admin: 04/06/18 08:21 Dose: 40 mg Vancomycin HCl 1 gm/ Sodium (Chloride) 250 mls @ 166.667 mls/hr IVPB Q1 2@0600,1800 [facility]; Protocol Last Admin: 04/06/18 05:50 Dose: 166.667 mls/hr Meropenem 500 mg/ Sodium (Chloride) 100 mls @ 100 mls/hr IVPB Q8 [facility]; Protocol Last Admin: 04/06/18 08:20 Dose: 100 mls/hr Lactobacillus Acidophilus (Bacid Acidophilus) 1 cap PO BID [facility] Last Admin: 04/06/18 08:21 Dose: 1 cap Meclizine HCl (Antivert) 12.5 mg PO DAILY [facility] Last Admin: 04/06/18 08:22 Dose: 12.5 mg Propranolol HCl (Inderal) 20 mg PO DAILY [facility] Last Admin: 04/06/18 08:22 Dose: 20 mg Results - Vital Signs Recent Vital Signs: Last Vital Signs Temp 97.8 F 04/06/18 07:59 Pulse 88 04/06/18 07:59 Resp 19 04/06/18 07:59 BP 149/82 04/06/18 07:59 Pulse Ox 97 04/06/18 07:59 - Labs Result Diagrams: 04/08/18 05:30 04/08/18 05:30 Labs: Laboratory Results - last 24 hr 04/06/18 04/06/18 05:55 05:55 WBC 7.9 RBC 4.72 Hgb 13.9 Hct 42.3 MCV 89.5 MCH 29.4 MCHC 32.8 L RDW 15.8 H Plt Count 169 Sodium 141 Potassium 4.2 Chloride 108 H Carbon Dioxide 21 L Anion Gap 16 BUN 13 Creatinine 0.7 Est GFR ( Amer) > 60 Est GFR (Non-Af Amer) > 60 Random Glucose 89 Calcium 8.1 L Assessment & Plan (1) Cerebral palsy Status: Acute (2) Left arm cellulitis Status: Acute (3) Sepsis Status: Acute (4) Pressure ulcer of back Status: Acute - Assessment and Plan (Free Text) Assessment: bacteremia- source unclear r/o skin vs Port may need to remove port
--- NOTE | 2018-04-06 14:48 | RAD ---
Date of service: 04/06/2018 HISTORY: fever wbc COMPARISON: No prior. TECHNIQUE: Chest PA and lateral FINDINGS: LUNGS: Left MediPort in position with tip turning the region the right atrium by left subclavian approach apparently. Limited inspiratory volume noted. No active airspace disease identified bilaterally. PLEURA: No pneumothorax bilaterally. No right pleural effusion. Limited left pleural effusion difficult to exclude laterally and posteriorly. CARDIOVASCULAR: No aortic atherosclerotic calcification present. Normal cardiac size. No pulmonary vascular congestion. OSSEOUS STRUCTURES: No significant abnormalities. VISUALIZED UPPER ABDOMEN: Surgical clips right upper quadrant abdomen. OTHER FINDINGS: None. IMPRESSION: No acute airspace disease. Trace of pleural effusion not excluded. No cardiomegaly or pulmonary vascular congestion.
[2018-04-07] MEDS: Meropenem 500 MG in Sodium Chloride 0.9% 100 ML IVPB SCH ×3 (00:35→16:31)
[2018-04-07] MEDS: Enoxaparin 40 mg Syringe SC SCH (09:42)
[2018-04-07] MEDS: Lactobacillus Acidophilus 500 MU Cap PO SCH ×2 (09:44→16:31)
--- NOTE | 2018-04-07 19:19 | PN ---
DATE: 04/07/2018 SUBJECTIVE: The patient was seen and examined. Interim events noted. Consult noted and appreciated. The patient remains in regular medical floor. The patient feels okay. Denies any chest pain or shortness of breath medication . PHYSICAL EXAMINATION GENERAL: The patient is in no acute distress. VITAL SIGNS: Stable. HEART: S1 and S2 normal and regular. LUNGS: Good bilateral air exchange. ABDOMEN: Soft and nontender. EXTREMITIES: Left elbow cellulitis is improving. No cyanosis. No neurovascular compromise. No edema. No calf swelling. No tenderness. CENTRAL NERVOUS SYSTEM: Essentially unchanged. DIAGNOSTIC DATA: Available diagnostic data reviewed. ASSESSMENT AND PLAN: Overall, the patient is really improving. Plan as ordered. Maulik Pierre MD
[2018-04-08] MEDS: Meropenem 500 MG in Sodium Chloride 0.9% 100 ML IVPB SCH ×3 (00:50→16:50)
[2018-04-08 07:34] LABS: HEMOGLOBIN 13.7 g/dL (12.0-16.0); MEAN CELL VOLUME 88.9 fl (81.0-99.0); MEAN CORPUSCULAR HEMOGLOBIN 29.7 pg (27.0-31.0); MEAN CORPUSCULAR HGB CONC 33.4 g/dL (33.0-37.0); RBC 4.62 Mil/uL (3.80-5.20); RED CELL DISTRIBUTION WIDTH 15.3 % (11.5-14.5); WHITE BLOOD COUNT 9.1 K/uL (4.8-10.8)
[2018-04-08 07:35] LABS: ALBUMIN 3.3 g/dL (3.5-5.0); ALT/SGPT 31 U/L (9-52); AST/SGOT 29 U/L (14-36); BLOOD UREA NITROGEN 13 mg/dl (7-17); CALCIUM 8.8 mg/dL (8.4-10.2); GFR NON-AFRICAN AMERICAN > 60
[2018-04-08] MEDS: Enoxaparin 40 mg Syringe SC SCH (08:48)
[2018-04-08] MEDS: Lactobacillus Acidophilus 500 MU Cap PO SCH ×2 (08:58→16:48)
--- NOTE | 2018-04-08 12:25 | PN ---
DATE: 04/08/2018 SUBJECTIVE: The patient seen and examined. Interim events noted. Consults noted and appreciated. The patient remains in regular medical floor. The patient is awake and responsive. Feels okay. Denies any specific complaint or pain. No specific issue reported by nursing staff other than difficult . PHYSICAL EXAMINATION: GENERAL: The patient is in no acute distress. VITAL SIGNS: Stable. HEART: S1 and S2. Normal and regular. LUNGS: Good bilateral air exchange. ABDOMEN: Soft and nontender. EXTREMITIES: Left antecubital cellulitis is improving. No cyanosis. No neurovascular compromise. No edema. No calf swelling. No tenderness. No acute ischemia. CENTRAL NERVOUS SYSTEM: Essentially unchanged. DIAGNOSTIC DATA: Available diagnostic data reviewed. Blood cultures are positive. Wound cultures are positive for proteus. Sensitivity is pending. ASSESSMENT AND PLAN: Plan as ordered. Maulik Pierre MD
--- NOTE | 2018-04-08 13:57 | CP.PCM.PN ---
Subjective - Date & Time of Evaluation Date of Evaluation: 04/08/18 Time of Evaluation: 06:00 - Subjective Subjective: blood cultures growing stap coag neg in 2/2 sets has left chest port in place consider port removal cont iv antibiotics Objective - Vital Signs/Intake and Output Vital Signs (last 24 hours): Temp Pulse Resp BP Pulse Ox 97.1 F L 106 H 20 122/80 97 04/08/18 07:57 04/08/18 08:48 04/08/18 07:57 04/08/18 08:48 04/08/18 07:57 - Medications Medications: Current Medications Acetaminophen (Tylenol 325mg Tab) 650 mg PO Q6 PRN PRN Reason: Fever >100.4 F Dimethicone (Proshield Plus Skin Protectant) 1 applic TOP Q8 PRN PRN Reason: Excoriation Last Admin: 04/06/18 08:21 Dose: 1 applic Enoxaparin Sodium (Lovenox) 40 mg SC DAILY [facility]; Protocol Last Admin: 04/08/18 08:48 Dose: 40 mg Vancomycin HCl 1 gm/ Sodium (Chloride) 250 mls @ 166.667 mls/hr IVPB Q12@0600,1800 [facility]; Protocol Last Admin: 04/08/18 06:12 Dose: 166.667 mls/hr Meropenem 500 mg/ Sodium (Chloride) 100 mls @ 100 mls/hr IVPB Q8 [facility]; Protocol Last Admin: 04/08/18 08:49 Dose: 100 mls/hr Lactobacillus Acidophilus (Bacid Acidophilus) 1 cap PO BID [facility] Last Admin: 04/08/18 08:58 Dose: 1 cap Meclizine HCl (Antivert) 12.5 mg PO DAILY [facility] Last Admin: 04/08/18 08:48 Dose: 12.5 mg Propranolol HCl (Inderal) 20 mg PO DAILY [facility] Last Admin: 04/08/18 08:48 Dose: 20 mg - Labs Labs: 04/08/18 05:30 04/08/18 05:30 - Constitutional Appears: Non-toxic, Chronically Ill - Head Exam Head Exam: NORMOCEPHALIC - Eye Exam Eye Exam: PERRL - ENT Exam ENT Exam: Mucous Membranes Dry - Neck Exam Neck Exam: absent: Lymphadenopathy - Respiratory Exam Respiratory Exam: Decreased Breath Sounds - Cardiovascular Exam Cardiovascular Exam: REGULAR RHYTHM - GI/Abdominal Exam GI & Abdominal Exam: Distended, Soft. absent: Tenderness - Rectal Exam Rectal Exam: Deferred - Exam Exam: NORMAL INSPECTION - Extremities Exam Extremities Exam: absent: Pedal Edema - Back Exam Back Exam: absent: CVA tenderness (L), CVA tenderness (R) - Neurological Exam Neurological Exam: Alert, Awake, CN II-XII Intact, Oriented x3 Neuro motor strength exam: Left Upper Extremity: 3, Right Upper Extremity: 3, Left Lower Extremity: 0, Right Lower Extremity: 0 - Psychiatric Exam Psychiatric exam: Depressed - Skin Skin Exam: Dry Assessment and Plan (1) Left arm cellulitis Status: Acute (2) Sepsis Status: Acute (3) Cerebral palsy Status: Acute - Assessment and Plan (Free Text) Assessment: consider Port removal as no blood return and possible source for infection
[2018-04-09] MEDS: Meropenem 500 MG in Sodium Chloride 0.9% 100 ML IVPB SCH ×3 (00:13→16:16)
[2018-04-09 06:46] LABS: HEMOGLOBIN 13.2 g/dL (12.0-16.0); MEAN CELL VOLUME 89.2 fl (81.0-99.0); MEAN CORPUSCULAR HEMOGLOBIN 29.4 pg (27.0-31.0); RBC 4.49 Mil/uL (3.80-5.20); RED CELL DISTRIBUTION WIDTH 15.1 % (11.5-14.5)
[2018-04-09 06:52] LABS: ALBUMIN 3.2 g/dL (3.5-5.0); ALT/SGPT 25 U/L (9-52); AST/SGOT 30 U/L (14-36); BLOOD UREA NITROGEN 11 mg/dl (7-17); CALCIUM 9.1 mg/dL (8.4-10.2); GFR NON-AFRICAN AMERICAN > 60
[2018-04-09] MEDS: Enoxaparin 40 mg Syringe SC SCH (08:56)
[2018-04-09] MEDS: Lactobacillus Acidophilus 500 MU Cap PO SCH ×2 (09:04→16:19)
--- NOTE | 2018-04-09 15:09 | PN ---
DATE: 04/09/2018 SUBJECTIVE: The patient is seen and examined. Interim events noted. Consults noted and appreciated. The patient had difficult vein and Port-A-Cath was accessed for IV antibiotic infusion. The patient feels okay Denies any new complaint. PHYSICAL EXAMINATION: GENERAL: The patient is in no acute distress. VITAL SIGNS: Stable. HEART: S1 and S2 normal and regular. LUNGS: Good bilateral air exchange. ABDOMEN: Soft and nontender. EXTREMITIES: Left antecubital cellulitis is slowly getting better. No sign of distal neurovascular compromise. No edema. No calf swelling. No tenderness. No acute ischemia. CENTRAL NERVOUS SYSTEM: Essentially unchanged and the patient has old cerebral palsy deformity. DIAGNOSTIC DATA: Available diagnostic data reviewed. ASSESSMENT AND PLAN: Overall, the patient is clinically stable. Plan as ordered. Maulik Pierre MD
[2018-04-09 15:32] LABS: INR 1.3; PROTHROMBIN TIME 15.2 Seconds (9.8-13.1)
[2018-04-09 15:35] LABS: PARTIAL THROMBOPLASTIN TIME 37.8 Seconds (25.6-37.1)
--- NOTE | 2018-04-09 17:16 | CP.PCM.CON ---
<Praveen Gonzalez - Last Filed: 04/09/18 17:02> History of Present Illness - History of Present Illness History of Present Illness: Surgery consult for Port removal 83 F w PMH of Endometrial CA s/p port placement and s/p chemo 10 years ago admitted for sepsis. Surgery is consulted to evaluate for port removal. Pt reports that she was dx w endometrial CA over 10 yrs ago and had hysterectomy and chemotherapy. Last chemo as 10 years ago. She doesn't remember the name of the oncologist and how many sessions she had. Port has not been used for several years. Pt reports that she didn't feel well recently. Recorded fever of 103.7. Denies nausea, vomiting. Received ABX and had diarrhea. Denies skin changes. Nursing tried to draw blood via the port. No blood return. Pt also has skin rashes on L arm and reports some itchiness and redness. Blood cx was + for staph aureus. Repeat pending. PMH cerebral palsy, endometrial CA s/p chemo PSH hysterectomy , appendectomy, cholecystectomy , portacath placement Review of Systems - Review of Systems Review of Systems: see HPI Past Patient History - Past Medical History & Family History Past Medical History?: Yes - Past Social History Smoking Status: Never Smoked - CARDIAC Hx Hypertension: Yes - PULMONARY Hx Respiratory Disorders: No - NEUROLOGICAL Hx Neurological Disorder: Yes (Cerebral Palsy) - HEENT Hx HEENT Problems: Yes Other/Comment: Glasses - RENAL Hx Chronic Kidney Disease: No - ENDOCRINE/METABOLIC Hx Endocrine Disorders: No - HEMATOLOGICAL/ONCOLOGICAL Hx Blood Disorders: No Hx Blood Transfusions: Yes Hx Blood Transfusion Reaction: No Hx Cancer: Yes (Uterine cancer) Hx Chemotherapy: Yes - INTEGUMENTARY Hx Dermatological Problems: No - MUSCULOSKELETAL/RHEUMATOLOGICAL Hx Musculoskeletal Disorders: Yes Hx Falls: No Hx Unsteady Gait: Yes - GASTROINTESTINAL Hx Gastrointestinal Disorders: Yes Hx Constipation: Yes - GENITOURINARY/GYNECOLOGICAL Hx Genitourinary Disorders: Yes Other/Comment: Endometrial Cancer - PSYCHIATRIC Hx Psychophysiologic Disorder: No Hx Substance Use: No - SURGICAL HISTORY Hx Appendectomy: Yes Hx Cholecystectomy: Yes - ANESTHESIA Hx Anesthesia: Yes Hx Anesthesia Reactions: No Hx Malignant Hyperthermia: No Meds Allergies/Adverse Reactions: Allergies Allergy/AdvReac Type Severity Reaction Status Date / Time diphenhydramine Allergy RASH Verified 04/03/18 19:45 [From Benadryl] morphine Allergy RASH Verified 04/03/18 19:45 Penicillins Allergy RASH Verified 04/03/18 19:45 - Medications Medications: Current Medications Acetaminophen (Tylenol 325mg Tab) 650 mg PO Q6 PRN PRN Reason: Fever >100.4 F Dimethicone (Proshield Plus Skin Protectant) 1 applic TOP Q8 PRN PRN Reason: Excoriation Last Admin: 04/06/18 08:21 Dose: 1 applic Enoxaparin Sodium (Lovenox) 40 mg SC DAILY [facility]; Protocol Vancomycin HCl 1 gm/ Sodium (Chloride) 250 mls @ 166.667 mls/hr IVPB Q12@0600,1800 [facility]; Protocol Last Admin: 04/09/18 06:55 Dose: 166.667 mls/hr Meropenem 500 mg/ Sodium (Chloride) 100 mls @ 100 mls/hr IVPB Q8 [facility]; Protocol Last Admin: 04/09/18 16:16 Dose: 100 mls/hr Lactobacillus Acidophilus (Bacid Acidophilus) 1 cap PO BID [facility] Last Admin: 04/09/18 16:19 Dose: 1 cap Meclizine HCl (Antivert) 12.5 mg PO DAILY [facility] Last Admin: 04/09/18 08:55 Dose: 12.5 mg Propranolol HCl (Inderal) 20 mg PO DAILY [facility] Last Admin: 04/09/18 08:55 Dose: 20 mg Physical Exam - Constitutional Appears: No Acute Distress - Head Exam Head Exam: ATRAUMATIC, NORMAL INSPECTION, NORMOCEPHALIC - Eye Exam Eye Exam: EOMI, Normal appearance, PERRL Pupil Exam: NORMAL ACCOMODATION, PERRL - ENT Exam ENT Exam: Mucous Membranes Moist - Neck Exam Neck exam: Positive for: Normal Inspection - Respiratory Exam Respiratory Exam: NORMAL BREATHING PATTERN - Cardiovascular Exam Cardiovascular Exam: Tachycardia - GI/Abdominal Exam GI & Abdominal Exam: Soft. absent: Distended, Firm, Guarding, Tenderness - Exam Exam: NORMAL INSPECTION - Extremities Exam Extremities exam: Negative for: full ROM, normal inspection Additional comments: L antecubical fold has rash [id number]. red in color. - Neurological Exam Neurological exam: Alert, Oriented x3 - Psychiatric Exam Psychiatric exam: Normal Affect, Normal Mood - Skin Skin Exam: Erythema, Warm Results - Vital Signs Recent Vital Signs: Last Vital Signs Temp 97.7 F 04/09/18 16:23 Pulse 97 H 04/09/18 16:23 Resp 18 04/09/18 16:23 BP 133/80 04/09/18 16:23 Pulse Ox 100 04/09/18 16:23 - Labs Result Diagrams: 04/09/18 05:55 04/09/18 05:55 Labs: Laboratory Results - last 24 hr 04/09/18 04/09/18 04/09/18 05:55 05:55 05:55 WBC 10.0 RBC 4.49 Hgb 13.2 Hct 40.1 MCV 89.2 MCH 29.4 MCHC 33.0 RDW 15.1 H Plt Count 244 PT INR APTT Sodium 141 Potassium 4.0 Chloride 108 H Carbon Dioxide 26 Anion Gap 11 BUN 11 Creatinine 0.6 L Est GFR ( Amer) > 60 Est GFR (Non-Af Amer) > 60 Random Glucose 92 Calcium 9.1 Total Bilirubin 0.4 AST 30 ALT 25 Alkaline Phosphatase 87 Total Protein 6.5 Albumin 3.2 L Globulin 3.3 Albumin/Globulin Ratio 1.0 Vancomycin Trough 39.4 H 04/09/18 14:53 WBC RBC Hgb Hct MCV MCH MCHC RDW Plt Count PT 15.2 H INR 1.3 APTT 37.8 H Sodium Potassium Chloride Carbon Dioxide Anion Gap BUN Creatinine Est GFR ( Amer) Est GFR (Non-Af Amer) Random Glucose Calcium Total Bilirubin AST ALT Alkaline Phosphatase Total Protein Albumin Globulin Albumin/Globulin Ratio Vancomycin Trough Assessment & Plan - Assessment and Plan (Free Text) Assessment: Bacteremia with portacath Blood cx staph aureus -Plan for OR tomorrow 730AM -NPO -IVF -ABX per ID DW Dr. Díaz <Danish Díaz - Last Filed: 04/14/18 15:43> Meds - Medications Medications: Current Medications Acetaminophen (Tylenol 325mg Tab) 650 mg PO Q6 PRN PRN Reason: Fever >100.4 F Dimethicone (Proshield Plus Skin Protectant) 1 applic TOP Q8 PRN PRN Reason: Excoriation Last Admin: 04/06/18 08:21 Dose: 1 applic Vancomycin HCl 1 gm/ Sodium (Chloride) 250 mls @ 166.667 mls/hr IVPB DAILY [facility]; Protocol Last Admin: 04/14/18 09:23 Dose: 166.667 mls/hr Lactobacillus Acidophilus (Bacid Acidophilus) 1 cap PO BID [facility] Last Admin: 04/14/18 10:04 Dose: 1 cap Meclizine HCl (Antivert) 12.5 mg PO DAILY [facility] Last Admin: 04/14/18 09:23 Dose: 12.5 mg Nystatin (Nystop Topical Powder) 1 applic TOP TID [facility] Last Admin: 04/14/18 09:23 Dose: 1 applic Propranolol HCl (Inderal) 20 mg PO DAILY [facility] Last Admin: 04/14/18 09:22 Dose: 20 mg Results - Vital Signs Recent Vital Signs: Last Vital Signs Temp 97.7 F 04/14/18 08:56 Pulse 81 04/14/18 09:22 Resp 19 04/14/18 08:56 BP 164/83 H 04/14/18 09:22 Pulse Ox 95 04/14/18 08:56 - Labs Result Diagrams: 04/11/18 05:50 04/11/18 05:50 Attending/Attestation - Attestation I have personally seen and examined this patient.: Yes I have fully participated in the care of the patient.: Yes I have reviewed all pertinent clinical information: Yes Notes (Text): Pt was seen and examined at bedside Agree with above note and assessment Pt with Bacteremia, Sepsis and possible infected port Chest : Left upper chest cellulitis, possible dermatitis Labs and Radiology reviewed Ass: Bacteremia, Sepsis, infected portacath Plan: IV antibiotics OR for Portacath removal Consent NPO, IVF C/w current mx Plan d.w pt in detail Risk and benefit explained in detail.
[2018-04-09] MEDS: Sodium Chloride 0.9% 1,000 ML IV SCH (23:49)
[2018-04-10] MEDS: Meropenem 500 MG in Sodium Chloride 0.9% 100 ML IVPB SCH ×3 (01:19→16:01)
[2018-04-10] MEDS: Sodium Chloride 0.9% 1,000 ML IV SCH (04:32)
[2018-04-10 06:48] LABS: HEMOGLOBIN 12.7 g/dL (12.0-16.0); MEAN CELL VOLUME 89.3 fl (81.0-99.0); MEAN CORPUSCULAR HEMOGLOBIN 29.6 pg (27.0-31.0); MEAN CORPUSCULAR HGB CONC 33.2 g/dL (33.0-37.0); RBC 4.29 Mil/uL (3.80-5.20); RED CELL DISTRIBUTION WIDTH 15.7 % (11.5-14.5); WHITE BLOOD COUNT 8.6 K/uL (4.8-10.8)
[2018-04-10 06:56] LABS: ALBUMIN 3.3 g/dL (3.5-5.0); ALT/SGPT 25 U/L (9-52); AST/SGOT 27 U/L (14-36); BLOOD UREA NITROGEN 13 mg/dl (7-17); CALCIUM 8.8 mg/dL (8.4-10.2); GFR NON-AFRICAN AMERICAN > 60
[2018-04-10] MEDS ORDERED: Lidocaine 1% Inj (20ml) ONE ×2 (07:26→12:41)
[2018-04-10] MEDS ORDERED: Bupivacaine 0.5% Inj(30mL) ONE (07:26)
[2018-04-10] MEDS ORDERED: Propofol 10 mg/ml Inj (20 ML) ONE (07:31)
[2018-04-10] MEDS ORDERED: Midazolam 2 MG/2 ML VIAL ONE (07:31)
[2018-04-10] MEDS ORDERED: Succinylcholine 200 mg/10 ml Inj IV ONE (07:32)
[2018-04-10] MEDS ORDERED: Sodium Chloride 0.9% 500 ML IV ONE (08:25)
--- NOTE | 2018-04-10 09:13 | PCM.SURG1 ---
Surgeon's Initial Post Op Note - Surgeon's Notes Surgeon: Dr. Díaz Monument Letterer: Dr Elam PGY 1 Type of Anesthesia: General Mask Pre-Operative Diagnosis: infected Portacath Operative Findings: see operative report Post-Operative Diagnosis: non-infected portacath Operation Performed: portacath removal Specimen/Specimens Removed: portacath device and capsule Estimated Blood Loss: EBL {In ML}: 2 Blood Products Given: N/A Drains Used: No Drains Post-Op Condition: Fair Date of Surgery/Procedure: 04/10/18 Time of Surgery/Procedure: 08:30
[2018-04-10] MEDS ORDERED: Lactated Ringer's 1,000 ML IV ONE (10:40)
[2018-04-10] MEDS: Lactobacillus Acidophilus 500 MU Cap PO SCH ×2 (11:19→16:00)
--- NOTE | 2018-04-10 13:13 | PCM.SURG1 ---
Surgeon's Initial Post Op Note - Surgeon's Notes Surgeon: Ling Human Performance Technologist: None Type of Anesthesia: Local Pre-Operative Diagnosis: IV access Operative Findings: Patent right basilic vein Post-Operative Diagnosis: IV access Operation Performed: Right basilic vein 4F SL 32cm PICC placed with the tip in the RA/SVC junction Specimen/Specimens Removed: None Estimated Blood Loss: EBL {In ML}: 1 Date of Surgery/Procedure: 04/10/18 Time of Surgery/Procedure: 13:05
--- NOTE | 2018-04-10 14:23 | PN ---
DATE: 04/10/2018 SUBJECTIVE: The patient is seen and examined. Interim events noted. Case discussed with . The patient is for Port-A-Cath removal today. The patient denied any new complaint. No chest pain, no shortness of breath. PHYSICAL EXAMINATION: GENERAL: The patient is in no acute distress. VITAL SIGNS: Stable. HEART: S1 and S2, normal and regular. LUNGS: Good bilateral air exchange. ABDOMEN: Soft, nontender. EXTREMITIES: No calf swelling. No tenderness. No acute ischemia. CENTRAL NERVOUS SYSTEM: Essentially unchanged. Left elbow cellulitis . ASSESSMENT AND PLAN: Overall, the patient is clinically stable. Plan as ordered. Maulik Pierre MD
[2018-04-11] MEDS: Meropenem 500 MG in Sodium Chloride 0.9% 100 ML IVPB SCH ×2 (00:50→09:17)
[2018-04-11 06:36] LABS: BASO # 0.1 K/uL (0.0-0.2); BASO % 0.9 % (0.0-2.0); EOS # 0.2 K/uL (0.0-0.7); EOS % 2.8 % (0.0-4.0); LYMPH # 1.7 K/uL (1.0-4.3); LYMPH % 21.6 % (20.0-40.0); MEAN CELL VOLUME 87.8 fl (81.0-99.0); MEAN CORPUSCULAR HEMOGLOBIN 30.2 pg (27.0-31.0); MEAN CORPUSCULAR HGB CONC 34.4 g/dL (33.0-37.0); MEAN PLATELET VOLUME 6.9 fl (7.2-11.7); MONO # 0.6 K/uL (0.0-0.8); MONO % 7.6 % (0.0-10.0); NEUT # 5.4 K/uL (1.8-7.0); NEUT % 67.1 % (50.0-75.0); RBC 3.95 Mil/uL (3.80-5.20); RED CELL DISTRIBUTION WIDTH 15.5 % (11.5-14.5)
[2018-04-11 06:44] LABS: ALBUMIN 3.1 g/dL (3.5-5.0); ALT/SGPT 20 U/L (9-52); AST/SGOT 34 U/L (14-36); BLOOD UREA NITROGEN 14 mg/dl (7-17); GFR NON-AFRICAN AMERICAN > 60
--- NOTE | 2018-04-11 08:22 | OP ---
PROCEDURE DATE: 04/10/2018 PREOPERATIVE DIAGNOSES: 1. Bacteremia. 2. Sepsis. 3. Infected Port-A-Cath. POSTOPERATIVE DIAGNOSES: 1. Bacteremia. 2. Sepsis. 3. Infected Port-A-Cath. PROCEDURES DONE: 1. Port-A-Cath removal. 2. Capsulectomy and layered closure of the wound. SURGEON: Danish Díaz MD CARDIOGRAPHER: Papa Arnold PGY-1 resident ANESTHESIA: General endotracheal tube anesthesia. ESTIMATED BLOOD LOSS: Around 10 mL. DRAINS: None. PATHOLOGY: Port-A-Cath with catheter with capsule was sent for the pathology. COMPLICATIONS: None. INTRAOPERATIVE FINDINGS: The patient had a left subclavian Port-A-Cath with extremely thickened capsule. DESCRIPTION OF PROCEDURE: On intraoperative steps, this is an 83-year-old female who was diagnosed with infected Port-A-Cath with bacteremia, and the patient had a temperature of 103. The patient was consented for the Port-A-Cath removal, brought to the OR, placed supine on the operating table. After induction of the anesthesia, the left upper chest was prepped and draped in the usual sterile fashion. Local anesthesia was injected. An incision was made transversely after incising the skin and subcutaneous tissue and deep part of the capsule. The Port-A-Cath was identified. The Port-A-Cath was completely removed. The [id number] suture was taken to prevent the backbleeding from the left subclavian vein. The catheter was sent off the table for pathology. The capsule was completely excised, and it was sent off the table for the pathology. The wound was closed in multi layers, the deep subcutaneous with 2-0 Vicryl, superficial subcu with 2-0 Vicryl and the skin with a 4-0 Monocryl. Dry sterile dressing was applied. The patient was reversed from sedation and sent to the postanesthesia care unit in stable condition. Danish Díaz MD
[2018-04-11] MEDS: Enoxaparin 40 mg Syringe SC SCH (09:18)
[2018-04-11] MEDS: Lactobacillus Acidophilus 500 MU Cap PO SCH ×2 (09:26→17:03)
--- NOTE | 2018-04-11 11:32 | CP.PCM.PN ---
<CarlosPraveen - Last Filed: 04/11/18 11:30> Subjective - Date & Time of Evaluation Date of Evaluation: 04/11/18 Time of Evaluation: 11:30 - Subjective Subjective: Surgery Pt seen and examined. Underwent port removal yesterday. TOlerated it well. No pain. Dressing clean. Arm and neck rash improving. Itchiness improved. Objective - Vital Signs/Intake and Output Vital Signs (last 24 hours): Temp Pulse Resp BP Pulse Ox 97.7 F 95 H 20 173/95 H 96 04/11/18 09:03 04/11/18 09:17 04/11/18 09:03 04/11/18 09:17 04/11/18 09:03 - Medications Medications: Current Medications Acetaminophen (Tylenol 325mg Tab) 650 mg PO Q6 PRN PRN Reason: Fever >100.4 F Dimethicone (Proshield Plus Skin Protectant) 1 applic TOP Q8 PRN PRN Reason: Excoriation Last Admin: 04/06/18 08:21 Dose: 1 applic Enoxaparin Sodium (Lovenox) 40 mg SC DAILY [facility]; Protocol Last Admin: 04/11/18 09:18 Dose: 40 mg Vancomycin HCl 1 gm/ Sodium (Chloride) 250 mls @ 166.667 mls/hr IVPB Q12@0600,1800 [facility]; Protocol Last Admin: 04/09/18 06:55 Dose: 166.667 mls/hr Meropenem 500 mg/ Sodium (Chloride) 100 mls @ 100 mls/hr IVPB Q8 [facility]; Protocol Last Admin: 04/11/18 09:17 Dose: 100 mls/hr Lactobacillus Acidophilus (Bacid Acidophilus) 1 cap PO BID [facility] Last Admin: 04/11/18 09:26 Dose: 1 cap Meclizine HCl (Antivert) 12.5 mg PO DAILY [facility] Last Admin: 04/11/18 09:17 Dose: 12.5 mg Nystatin (Nystop Topical Powder) 1 applic TOP TID [facility] Propranolol HCl (Inderal) 20 mg PO DAILY [facility] Last Admin: 04/11/18 09:17 Dose: 20 mg - Labs Labs: 04/11/18 05:50 04/11/18 05:50 PT 15.2 Seconds (9.8-13.1) H 04/09/18 14:53 INR 1.3 04/09/18 14:53 APTT 37.8 Seconds (25.6-37.1) H 04/09/18 14:53 - Constitutional Appears: No Acute Distress - Head Exam Head Exam: ATRAUMATIC, NORMAL INSPECTION, NORMOCEPHALIC - Eye Exam Eye Exam: EOMI, Normal appearance, PERRL Pupil Exam: NORMAL ACCOMODATION, PERRL - ENT Exam ENT Exam: Mucous Membranes Moist, Normal Exam - Neck Exam Neck Exam: Full ROM. absent: Normal Inspection, Tenderness Additional comments: L lateral neck has 10x5cm rash. Dressing C/D/I - Respiratory Exam Respiratory Exam: NORMAL BREATHING PATTERN - Cardiovascular Exam Cardiovascular Exam: REGULAR RHYTHM - GI/Abdominal Exam GI & Abdominal Exam: Soft, Normal Bowel Sounds. absent: Distended, Tenderness - Back Exam Back Exam: rash noted. absent: NORMAL INSPECTION, tenderness - Neurological Exam Neurological Exam: Alert, Awake, Oriented x3. absent: Normal Gait - Psychiatric Exam Psychiatric exam: Normal Affect, Normal Mood - Skin Skin Exam: Intact, Rash. absent: Normal Color Assessment and Plan - Assessment and Plan (Free Text) Assessment: Bacteremia POD 1 s/p Port removal -Site is clean, no bleeding -ABX -No further surgical intervention at this time. Will DW Dr. Díaz <Danish Díaz - Last Filed: 04/14/18 15:46> Objective - Vital Signs/Intake and Output Vital Signs (last 24 hours): Temp Pulse Resp BP Pulse Ox 97.7 F 81 19 164/83 H 95 04/14/18 08:56 04/14/18 09:22 04/14/18 08:56 04/14/18 09:22 04/14/18 08:56 - Medications Medications: Current Medications Acetaminophen (Tylenol 325mg Tab) 650 mg PO Q6 PRN PRN Reason: Fever >100.4 F Dimethicone (Proshield Plus Skin Protectant) 1 applic TOP Q8 PRN PRN Reason: Excoriation Last Admin: 04/06/18 08:21 Dose: 1 applic Vancomycin HCl 1 gm/ Sodium (Chloride) 250 mls @ 166.667 mls/hr IVPB DAILY [facility]; Protocol Last Admin: 04/14/18 09:23 Dose: 166.667 mls/hr Lactobacillus Acidophilus (Bacid Acidophilus) 1 cap PO BID [facility] Last Admin: 04/14/18 10:04 Dose: 1 cap Meclizine HCl (Antivert) 12.5 mg PO DAILY [facility] Last Admin: 04/14/18 09:23 Dose: 12.5 mg Nystatin (Nystop Topical Powder) 1 applic TOP TID [facility] Last Admin: 04/14/18 09:23 Dose: 1 applic Propranolol HCl (Inderal) 20 mg PO DAILY [facility] Last Admin: 04/14/18 09:22 Dose: 20 mg - Labs Labs: 04/11/18 05:50 04/11/18 05:50 PT 15.2 Seconds (9.8-13.1) H 04/09/18 14:53 INR 1.3 04/09/18 14:53 APTT 37.8 Seconds (25.6-37.1) H 04/09/18 14:53 Attending/Attestation - Attestation I have personally seen and examined this patient.: Yes I have fully participated in the care of the patient.: Yes I have reviewed all pertinent clinical information, including history, physical exam and plan: Yes Notes (Text): Pt was seen and examined at bedside Agree with above note and assessment Pt is improving clinically Wound is C/D/I. C.w IV antibiotics Local wound care f.u as out pt Plan d.w pt in detail
--- NOTE | 2018-04-11 13:06 | CP.PCM.PN ---
Subjective - Date & Time of Evaluation Date of Evaluation: 04/11/18 Time of Evaluation: 09:00 - Subjective Subjective: port removed to cont iv rx for 14 days from first neg blood culture Objective - Vital Signs/Intake and Output Vital Signs (last 24 hours): Temp Pulse Resp BP Pulse Ox 97.7 F 95 H 20 173/95 H 96 04/11/18 09:03 04/11/18 09:17 04/11/18 09:03 04/11/18 09:17 04/11/18 09:03 - Medications Medications: Current Medications Acetaminophen (Tylenol 325mg Tab) 650 mg PO Q6 PRN PRN Reason: Fever >100.4 F Dimethicone (Proshield Plus Skin Protectant) 1 applic TOP Q8 PRN PRN Reason: Excoriation Last Admin: 04/06/18 08:21 Dose: 1 applic Enoxaparin Sodium (Lovenox) 40 mg SC DAILY [facility]; Protocol Last Admin: 04/11/18 09:18 Dose: 40 mg Vancomycin HCl 1 gm/ Sodium (Chloride) 250 mls @ 166.667 mls/hr IVPB Q1 2@0600,1800 [facility]; Protocol Last Admin: 04/09/18 06:55 Dose: 166.667 mls/hr Meropenem 500 mg/ Sodium (Chloride) 100 mls @ 100 mls/hr IVPB Q8 [facility]; Protocol Last Admin: 04/11/18 09:17 Dose: 100 mls/hr Lactobacillus Acidophilus (Bacid Acidophilus) 1 cap PO BID [facility] Last Admin: 04/11/18 09:26 Dose: 1 cap Meclizine HCl (Antivert) 12.5 mg PO DAILY [facility] Last Admin: 04/11/18 09:17 Dose: 12.5 mg Nystatin (Nystop Topical Powder) 1 applic TOP TID [facility] Propranolol HCl (Inderal) 20 mg PO DAILY [facility] Last Admin: 04/11/18 09:17 Dose: 20 mg - Labs Labs: 04/11/18 05:50 04/11/18 05:50 PT 15.2 Seconds (9.8-13.1) H 04/09/18 14:53 INR 1.3 04/09/18 14:53 APTT 37.8 Seconds (25.6-37.1) H 04/09/18 14:53 Assessment and Plan (1) Cerebral palsy Status: Acute (2) Left arm cellulitis Status: Acute (3) Sepsis Status: Acute (4) Pressure ulcer of back Status: Acute
--- NOTE | 2018-04-11 13:11 | PN ---
DATE: 04/11/2018 SUBJECTIVE: The patient seen and examined. Interim events noted. Consults noted and appreciated. Surgery and interventional radiologist's intervention noted and appreciated. The patient is status post Port-A-Cath removal. The patient is also status post PICC line insertion. The patient feels okay. Denies any pain. PHYSICAL EXAMINATION: GENERAL: The patient is in no acute distress. VITAL SIGNS: Stable. HEART: S1 and S2, normal and regular. LUNGS: Good bilateral air exchange. ABDOMEN: Soft and nontender. EXTREMITIES: The patient has chronic deformity related to her cerebral palsy. No edema. No calf swelling. No tenderness. No acute ischemia. Left antecubital cellulitis is slowly decreasing. CENTRAL NERVOUS SYSTEM: Essentially unchanged. DIAGNOSTIC DATA: Available diagnostic data reviewed. Repeat blood culture remains negative. ASSESSMENT AND PLAN: Overall, the patient is clinically stable. Peripherally inserted central catheter line is in good position and functioning. Port-A-Cath is removed. Plan as ordered. Maulik Pierre MD
[2018-04-12] MEDS: Enoxaparin 40 mg Syringe SC SCH (10:27)
[2018-04-12] MEDS: Lactobacillus Acidophilus 500 MU Cap PO SCH ×2 (10:33→17:31)
--- NOTE | 2018-04-12 11:25 | VASCULAR ---
Procedure: Ultrasound and fluoroscopically placed Right upper extremity PICC. Clinical indication: Long-term IV antibiotics. Technique: The relative risks and indications of the procedure were explained to the patient and written informed consent obtained. The patient was placed supine on the angiographic table and the right arm prepped and draped in the usual sterile fashion. A tourniquet was applied to the right axilla. 1% lidocaine was used to anesthetize the skin and soft tissues at the puncture site above the elbow. The right upper extremity vein was punctured under direct ultrasound guidance with a micropuncture set. A permanent image was stored. A 0.018 guidewire was advanced centrally and used to measure the length to the SVC/RA junction. A 4 [place] single-lumen PICC, size 32 cm, was advanced to the SVC/RA junction under fluoroscopic guidance. The catheter was flushed and secured. The patient tolerated the procedure well. Postprocedure chest image was obtained to ensure location of the catheter tip at the SVC right atrial junction. Impression: Ultrasound and fluoroscopically placed right upper extremity PICC. A 4 [place] single-lumen PICC, size 32 cm was advanced to the SVC/RA junction. PICC ready for use.
[2018-04-13] MEDS: Enoxaparin 40 mg Syringe SC SCH (08:46)
[2018-04-13] MEDS: Lactobacillus Acidophilus 500 MU Cap PO SCH ×2 (10:18→16:40)
--- NOTE | 2018-04-13 13:11 | PN ---
DATE: 04/13/2018 SUBJECTIVE: The patient seen and examined. Interim events noted. Consults noted and appreciated. The patient remains in regular medical floor. The patient feels okay. Denies any specific complaint of chest pain or shortness of breath. PHYSICAL EXAMINATION: GENERAL: The patient is in no acute distress. VITAL SIGNS: Stable. HEART: S1 and S2, normal, regular. LUNGS: Good bilateral air exchange. ABDOMEN: Soft, nontender. EXTREMITIES: No edema. No calf swelling. No tenderness. No acute ischemia. Cellulitis is improved. DIAGNOSTIC DATA: Available diagnostic data reviewed. ASSESSMENT AND PLAN: Overall, the patient is clinically stable. the patient is going to need antibiotics. Plan as ordered. Maulik Pierre MD
[2018-04-14] MEDS: Lactobacillus Acidophilus 500 MU Cap PO SCH ×2 (10:04→17:22)
--- NOTE | 2018-04-14 13:56 | PN ---
DATE: 04/14/2018 SUBJECTIVE: The patient seen and examined. Interim events noted. Consults noted and appreciated. The patient remains in regular medical floor. The patient with septicemia with PICC line. The patient feels okay. Denies any chest pain or shortness of breath. PHYSICAL EXAMINATION: GENERAL: The patient is in no acute distress. VITAL SIGNS: Stable. HEART: S1 and S2, normal and regular. LUNGS: Good bilateral air exchange. ABDOMEN: Soft and nontender. EXTREMITIES: The patient's left antecubital cellulitis is almost resolved. No edema. No calf swelling. No tenderness. No acute ischemia. CENTRAL NERVOUS SYSTEM: Essentially unchanged. DIAGNOSTIC DATA: Available diagnostic data reviewed. ASSESSMENT AND PLAN: Overall, the patient's general medical condition is slowly improved. The patient will require two weeks of antibiotic. Plan as ordered. Case and plan discussed with the patient. Maulik Pierre MD
--- NOTE | 2018-04-15 08:54 | PN ---
DATE: 04/15/2018 SUBJECTIVE: The patient is seen and examined. Interim events noted. Consults noted and appreciated. The patient remains in regular medical floor. The patient is sleeping, arousable, feels okay. Denies any new complaints. No chest pain or shortness of breath. PHYSICAL EXAMINATION: GENERAL: The patient is in no acute distress. VITAL SIGNS: Stable. HEART: S1 and S2, normal and regular. LUNGS: Good bilateral air exchange. ABDOMEN: Soft and nontender. EXTREMITIES: No calf swelling. No tenderness. No acute ischemia. No edema. CENTRAL NERVOUS SYSTEM: Essentially unchanged. PICC line site and previous Port-a-Cath sites are clean without any sign of complication. DIAGNOSTIC DATA: Available diagnostic data reviewed. ASSESSMENT AND PLAN: Overall, the patient is clinically stable. Plan as ordered. Maulik Pierre MD
[2018-04-15] MEDS: Lactobacillus Acidophilus 500 MU Cap PO SCH ×2 (10:01→16:41)
--- NOTE | 2018-04-15 13:44 | CP.PCM.PN ---
Subjective - Date & Time of Evaluation Date of Evaluation: 04/15/18 Time of Evaluation: 10:00 - Subjective Subjective: AWAKE ALERT LEFT ARM CELLULITIS RESOLVED PORT OUT TO COMPLETE 14 DAYS IV VANCO Objective - Vital Signs/Intake and Output Vital Signs (last 24 hours): Temp Pulse Resp BP Pulse Ox 97.8 F 98 H 18 160/80 H 100 04/15/18 08:30 04/15/18 10:02 04/15/18 08:30 04/15/18 10:02 04/15/18 08:30 - Medications Medications: Current Medications Acetaminophen (Tylenol 325mg Tab) 650 mg PO Q6 PRN PRN Reason: Fever >100.4 F Dimethicone (Proshield Plus Skin Protectant) 1 applic TOP Q8 PRN PRN Reason: Excoriation Last Admin: 04/06/18 08:21 Dose: 1 applic Vancomycin HCl 1 gm/ Sodium (Chloride) 250 mls @ 166.667 mls/hr IVPB DAILY [facility]; Protocol Last Admin: 04/15/18 09:56 Dose: 166.667 mls/hr Lactobacillus Acidophilus (Bacid Acidophilus) 1 cap PO BID [facility] Last Admin: 04/15/18 10:01 Dose: 1 cap Meclizine HCl (Antivert) 12.5 mg PO DAILY [facility] Last Admin: 04/15/18 10:02 Dose: 12.5 mg Nystatin (Nystop Topical Powder) 1 applic TOP TID [facility] Last Admin: 04/15/18 10:03 Dose: 1 applic Propranolol HCl (Inderal) 20 mg PO DAILY [facility] Last Admin: 04/15/18 10:02 Dose: 20 mg - Labs Labs: 04/11/18 05:50 04/11/18 05:50 PT 15.2 Seconds (9.8-13.1) H 04/09/18 14:53 INR 1.3 04/09/18 14:53 APTT 37.8 Seconds (25.6-37.1) H 04/09/18 14:53 - Constitutional Appears: Non-toxic, Chronically Ill - Head Exam Head Exam: NORMOCEPHALIC - Eye Exam Eye Exam: absent: Scleral icterus - ENT Exam ENT Exam: Mucous Membranes Dry - Neck Exam Neck Exam: absent: Lymphadenopathy - Respiratory Exam Respiratory Exam: Decreased Breath Sounds - Cardiovascular Exam Cardiovascular Exam: REGULAR RHYTHM - GI/Abdominal Exam GI & Abdominal Exam: Distended, Soft - Rectal Exam Rectal Exam: Deferred - Exam Exam: NORMAL INSPECTION - Extremities Exam Extremities Exam: absent: Pedal Edema - Back Exam Back Exam: absent: CVA tenderness (L), CVA tenderness (R) - Neurological Exam Neurological Exam: Alert, CN II-XII Intact Additional comments: WEAKNESS BILAT LOWER EXTREM - Psychiatric Exam Psychiatric exam: Depressed - Skin Skin Exam: Dry Assessment and Plan (1) Cerebral palsy Status: Acute (2) Left arm cellulitis Status: Acute (3) Sepsis Status: Acute (4) Pressure ulcer of back Status: Acute - Assessment and Plan (Free Text) Assessment: CONT RX 14 DAYS
--- NOTE | 2018-04-16 02:15 | PCM.RRT ---
<Yovani Katz - Last Filed: 04/16/18 02:37> SIGN INSTALLER Nurse Assessment - Situation SIGN INSTALLER Responder Arrival Time: 13:08 Location: 6th floor Room Number: [id number] SIGN INSTALLER Reason for Call: Respiratory Distress - IV IV Inserted during SIGN INSTALLER?: No - Respiratory Oxygen Delivery Method: Room Air, Nasal Cannula Received Nebulizer Treatments: No Was the Patient Ventilated with Bag/Mask 100% O2?: No Was the Patient Placed on a Ventilator?: No - Diagnostic Test Ordered EKG: Yes Chest X-Ray: Yes - Stat Labs Ordered SIGN INSTALLER Stat Labs Ordered: CBC, BMP, PT/PTT, TROPONIN, ABG CPR started during SIGN INSTALLER?: No I.Reason for SIGN INSTALLER - A) Acute Change in Patient: (Select all that apply): Staff member or family is worried about patient Subjective: SIGN INSTALLER was called for 83 y/o F due to cyanotic episode and patient was calling "Help me". Upon arrival patient's nose looked cyanotic and moaning in pain, shouting help me, Spo2 94% RA and alert, awake, following commands and no in any respiratory distress. Patient was started on 4 L NC, Initial BP 147/95, HR 120, Afebrile, 97% Spo2 on NC, Blood sugar 232. Patient denies any chest pain, dizziness, breathing difficulty. PE: CTABL, RRR, moaning, opens eyes spontaneously and on commands, Non-tender abdomen. EKG was done which shows no acute significant changes, blood work: Troponinx3, CBC, BMP and COag ordered. ABG reviewed on 4 L O2: no significant findings seen, CXR: no acute findings, looked better than CXR on admission. Patient seems calm down little bit and SIGN INSTALLER was ended, patient remains in same room. Will follow up as needed. FOllow up: CBC, BMP, Troponinx3 and Coag Reviewed: CXR, EKG and ABG Case discussed with Dr. Martinez --- Yovani Katz, PGY-II - Neurological Status (Select all that apply): Alert, Responsive, Verbal, Follows Commands - Constitutional Appears: Agitated Additional Comments: moaning - Head Head Exam: NORMAL INSPECTION - Eyes Eye Exam: Normal appearance - Respiratory Exam Respiratory Exam: Clear to Ausculation Bilateral, NORMAL BREATHING PATTERN. absent: Prolonged Expiratory Phase, Rhonchi, Wheezes, Respiratory Distress - Cardiovascular Exam Cardiovascular Exam: REGULAR RHYTHM - GI/Abdominal Exam GI & Abdominal Exam: Soft, Normal Bowel Sounds. absent: Tenderness - Neurological Exam Neurological Exam: Alert Plan - Assessment of Findings&Treatment Plan Follow up: CBC, BMP, Troponinx3 and Coag <Jonatan Martinez - Last Filed: 04/16/18 06:15> SIGN INSTALLER Nurse Assessment - Vital Signs Vital Signs: Rapid Response Vital Sign Blood Pressure 147/86 Pulse Rate 122 Respiratory Rate 22 Temperature 97.2 F Oxygen Saturation 92 - Vital Signs at end of SIGN INSTALLER Vital Signs at end of SIGN INSTALLER: Rapid Response End Vital Sign Blood Pressure 143/85 Pulse Rate 118 Respiratory Rate 22 Temperature 97.2 F O2 Sat by Pulse Oximetry 94 Attending/Attestation - Attestation I have personally seen and examined this patient.: Yes I have fully participated in the care of the patient.: Yes I have reviewed all pertinent clinical information, including history, physical exam and plan: Yes Notes (Text): 04/16/18 05:43 I saw and examined this patient shoulder with Dr Katz. I agree with the assessment and plan outlined which indicate my direct input. the Rapid Response Team was called because the nurse found the patient with Central cyanosis ' blueish coloration around the cheeks and mouth', with the patient groaning and saying that she was not feeling good, moving both upper extremities Nasal Oxygen was applied with nasal cannula. The Cyanosis improved but patient still with some change in mental status. The ABG on Oxygen showed the PO2 in the 70s The Chest X Ray was with no infiltrate EKG was sinus Tachycardia with no sign of ischemia First Troponin was <0.0120 The CBC showed evidence of Hemoconcentration The renal labs showed evidence of Dehydration. The Patient was later noted having some difficulty to cough and received nasopharyngeal suctioning which showed that she had a cough reflex. Bronchodilator Duoneb was given. Oxygen was continued on Ventimask at 40% as she is a mouth breather IV Fluid of Bolus Normal saline was started to be continued with Maintenance IV fluid of NS at 100mls/hr Continue Antibiotics for the Cellulitis at the left arm. Follow Magnesium Will order Head CT to r/o Stroke. Critical Care Time 40mins oJnatan Martinez MD
[2018-04-16 02:23] LABS: BASO % 0.2 % (0.0-2.0); EOS # 0.4 K/uL (0.0-0.7); EOS % 2.1 % (0.0-4.0); HEMOGLOBIN 15.2 g/dL (12.0-16.0); LYMPH # 5.3 K/uL (1.0-4.3); MEAN CELL VOLUME 91.7 fl (81.0-99.0); MEAN CORPUSCULAR HEMOGLOBIN 29.4 pg (27.0-31.0); MEAN CORPUSCULAR HGB CONC 32.1 g/dL (33.0-37.0); MEAN PLATELET VOLUME 8.1 fl (7.2-11.7); MONO # 0.6 K/uL (0.0-0.8); MONO % 3.2 % (0.0-10.0); NEUT # 12.7 K/uL (1.8-7.0); NEUT % 66.5 % (50.0-75.0); NRBC % 0.3 % (0.0-0.0); RBC 5.16 Mil/uL (3.80-5.20); RED CELL DISTRIBUTION WIDTH 16.2 % (11.5-14.5)
[2018-04-16 02:36] LABS: BLOOD UREA NITROGEN 22 mg/dl (7-17); CALCIUM 10.5 mg/dL (8.4-10.2); GFR NON-AFRICAN AMERICAN > 60
[2018-04-16 02:47] LABS: INR 1.1; PROTHROMBIN TIME 12.8 Seconds (9.8-13.1)
[2018-04-16 02:49] LABS: PARTIAL THROMBOPLASTIN TIME 25.4 Seconds (25.6-37.1)
[2018-04-16] MEDS ORDERED: Chlorhexidine Gluconate 1 APPL/PKT TP ONE (04:37)
[2018-04-16] MEDS ORDERED: Levalbuterol 1.25 MG/3 ML Inhal Soln UD INH STA ×2 (04:44→20:17)
[2018-04-16] MEDS ORDERED: Sodium Chloride 0.9% 500 ML IV ONE ×2 (05:21→20:09)
[2018-04-16] MEDS ORDERED: Sodium Chloride 0.9% 1,000 ML IV SCH ×8 (05:30→19:00)
[2018-04-16 06:56] LABS: ABG ALLEN TEST YES; ARTERIAL BLOOD GAS HEMOGLOBIN 15.3 g/dL (11.7-17.4); ARTERIAL BLOOD GAS O2 CAPACITY 20.7 mL/dL (16-24); ARTERIAL BLOOD GAS O2 CONTENT 20.3 ML/dL (15-23); ARTERIAL BLOOD GAS O2 SAT 97.9 % (95-98); ARTERIAL BLOOD GAS PCO2 16 mm/Hg (35-45); ARTERIAL BLOOD GAS PH 7.41 (7.35-7.45); ARTERIAL BLOOD GAS PO2 76 mm/Hg (80-100); ARTERIAL BLOOD GAS TCO2 10.6 mmol/L (22-28)
--- NOTE | 2018-04-16 08:57 | RAD ---
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 FINDINGS: Prior left MediPort is been removed. Right PICC catheters inserted are at upper extremity approach with tip terminating at the cavoatrial junction. LUNGS: No active pulmonary disease. PLEURA: No significant pleural effusion identified, no pneumothorax apparent. CARDIOVASCULAR: No aortic atherosclerotic calcification present. Normal cardiac size. No pulmonary vascular congestion. OSSEOUS STRUCTURES: No significant abnormalities. VISUALIZED UPPER ABDOMEN: Surgical clips are again seen at the right upper quadrant abdomen. OTHER FINDINGS: None. IMPRESSION: Right PICC now in situ as described above. Left MediPort removed in the interval. No acute cardiopulmonary disease appreciable.
[2018-04-16 08:58] LABS: BASO # 0.3 K/uL (0.0-0.2); BASO % 0.8 % (0.0-2.0); EOS % 0.1 % (0.0-4.0); HEMOGLOBIN 13.9 g/dL (12.0-16.0); LYMPH # 2.3 K/uL (1.0-4.3); LYMPH % 5.9 % (20.0-40.0); MEAN CELL VOLUME 92.9 fl (81.0-99.0); MEAN CORPUSCULAR HEMOGLOBIN 28.9 pg (27.0-31.0); MEAN CORPUSCULAR HGB CONC 31.1 g/dL (33.0-37.0); MEAN PLATELET VOLUME 7.3 fl (7.2-11.7); MONO # 1.4 K/uL (0.0-0.8); MONO % 3.6 % (0.0-10.0); NEUT # 34.4 K/uL (1.8-7.0); NEUT % 89.6 % (50.0-75.0); NRBC % 0.2 % (0.0-0.0); PLATELET COUNT 392 K/uL (130-400); RBC 4.82 Mil/uL (3.80-5.20); RED CELL DISTRIBUTION WIDTH 16.4 % (11.5-14.5)
[2018-04-16] MEDS ORDERED: Enoxaparin 40 mg Syringe SC SCH (09:00)
--- NOTE | 2018-04-16 09:03 | CP.PCM.CON ---
History of Present Illness - History of Present Illness History of Present Illness: Attending: Maulik Pierre for Consult: Critical care management Chief Complaint: Change in mental status/Central Cyanosis SOB The patient was seen and examined on the Med/Surg unit HPI: The hx was obtained from the medical staff and after review of the radiological and medical records. She is an 83 years old female with hx of HTN, cerebral Palsy, and endometrial cancers s/p Chemotherapy. She was admitted on 04/03/18 and diagnosed with Cellulite of the left upper arm and sepsis. Blood culture grew Coag negative Streptococcus and urine culture grew Proteus Mirabilis. The theron cath was removed and a Picc line was placed. Earlier this AM BI APPLICATION DEVELOPER was called because of AMS, central Cyanosis and SOB. The patient was groaning, saying that she was not feeling good, moving both upper extremities. Oxygen was applied with nasal cannula. The Cyanosis improved but patient still with some change in mental status. The ABG on Oxygen showed the PO2 in the 70s The Chest X Ray was with no infiltrate EKG was sinus Tachycardia with no sign of ischemia First Troponin was <0.0120 The CBC showed evidence of Hemoconcentration The renal labs showed evidence of Dehydration. The Patient was later noted having some difficulty to cough and received nasopharyngeal suctioning which showed that she had a cough reflex. Bronchodilator Duoneb was given. Oxygen was continued on Ventimask at 40% as she is a mouth breather IV Fluid of Bolus Normal saline was started to be continued with Maintenance IV fluid of NS at 100mls/hr Continue Antibiotics for the Cellulitis at the left arm. Follow Magnesium Will order Head CT to r/o Stroke. PMH: HTN; Endometrial Cancer s/p Chemotherapy; Cerebral Palsy; Unsteady gait;Cerebral Palsy PSH. Appendectomy; cholecystectomy; Hysterectomy; portacath at left chest wall removed SH: Former smoker; No ETOH; No illegal drug use; FH: No known family hx Allergies: Morphine; Penicillin; benadryl Medication: Reviewed Review of Systems - Review of Systems Systems not reviewed;Unavailable: Altered Mental Status Review of Systems: Review of system is limited because of change in mental status Past Patient History - Past Medical History & Family History Past Medical History?: Yes - Past Social History Smoking Status: Never Smoked Chewing Tobacco Use: No Cigar Use: No Alcohol: None Drugs: Denies - CARDIAC Hx Hypertension: Yes - PULMONARY Hx Respiratory Disorders: No - NEUROLOGICAL Hx Neurological Disorder: Yes (Cerebral Palsy) - HEENT Hx HEENT Problems: Yes Other/Comment: Glasses - RENAL Hx Chronic Kidney Disease: No - ENDOCRINE/METABOLIC Hx Endocrine Disorders: No - HEMATOLOGICAL/ONCOLOGICAL Hx Blood Disorders: No Hx Blood Transfusions: Yes Hx Blood Transfusion Reaction: No Hx Cancer: Yes (Uterine cancer) Hx Chemotherapy: Yes - INTEGUMENTARY Hx Dermatological Problems: No - MUSCULOSKELETAL/RHEUMATOLOGICAL Hx Musculoskeletal Disorders: Yes Hx Falls: No Hx Unsteady Gait: Yes - GASTROINTESTINAL Hx Gastrointestinal Disorders: Yes Hx Constipation: Yes - GENITOURINARY/GYNECOLOGICAL Hx Genitourinary Disorders: Yes Other/Comment: Endometrial Cancer - PSYCHIATRIC Hx Psychophysiologic Disorder: No Hx Substance Use: No - SURGICAL HISTORY Hx Appendectomy: Yes Hx Cholecystectomy: Yes - ANESTHESIA Hx Anesthesia: Yes Hx Anesthesia Reactions: No Hx Malignant Hyperthermia: No Meds Home Medications: Home Medication List Medication Instructions Recorded Confirmed Type Lactobacillus Acidophilus [Bacid 1 cap PO BID cap 04/12/18 Rx Acidophilus] Nystatin [Nystop Topical Powder] 1 applic TOP TID bottle 04/12/18 Rx Vancomycin 1 GM [Vancomycin 1GM in 1 gm IVPB DAILY #10 bag 04/12/18 Rx Normal Saline Addvantage] Allergies/Adverse Reactions: Allergies Allergy/AdvReac Type Severity Reaction Status Date / Time diphenhydramine Allergy RASH Verified 04/03/18 19:45 [From Benadryl] morphine Allergy RASH Verified 04/03/18 19:45 Penicillins Allergy RASH Verified 04/03/18 19:45 - Medications Medications: Current Medications Acetaminophen (Tylenol 325mg Tab) 650 mg PO Q6 PRN PRN Reason: Fever >100.4 F Dimethicone (Proshield Plus Skin Protectant) 1 applic TOP Q8 PRN PRN Reason: Excoriation Last Admin: 04/06/18 08:21 Dose: 1 applic Vancomycin HCl 1 gm/ Sodium (Chloride) 250 mls @ 166.667 mls/hr IVPB DAILY [facility]; Protocol Last Admin: 04/15/18 09:56 Dose: 166.667 mls/hr Sodium Chloride (Sodium Chloride 0.9%) 1,000 mls @ 100 mls/hr IV .Q10H [facility] Stop: 04/16/18 15:29 Last Admin: 04/16/18 05:35 Dose: 100 mls/hr Lactobacillus Acidophilus (Bacid Acidophilus) 1 cap PO BID [facility] Last Admin: 04/15/18 16:41 Dose: 1 cap Nystatin (Nystop Topical Powder) 1 applic TOP TID [facility] Last Admin: 04/15/18 16:42 Dose: 1 applic Physical Exam - Constitutional Additional comments: In mild respiratory distress. - Head Exam Head Exam: ATRAUMATIC, NORMAL INSPECTION, NORMOCEPHALIC - Eye Exam Eye Exam: EOMI Pupil Exam: NORMAL ACCOMODATION - ENT Exam ENT Exam: Mucous Membranes Dry, Normal External Ear Exam - Neck Exam Neck exam: Positive for: Full Rom, Normal Inspection. Negative for: Tenderness - Respiratory Exam Respiratory Exam: Clear to Auscultation Bilateral. absent: Rales, Rhonchi, Wheezes - Cardiovascular Exam Cardiovascular Exam: Tachycardia, REGULAR RHYTHM, +S1, +S2. absent: Gallop - GI/Abdominal Exam Additional comments: Obese, soft, nontender, +ve bowel sounds, no masses. - Rectal Exam Rectal Exam: Deferred - Extremities Exam Additional comments: No edema at the lower extremities. The ankles are fixed in extension - Back Exam Back exam: absent: CVA tenderness (L), CVA tenderness (R) - Neurological Exam Additional comments: Lethargic, no facial droop, answering questions in monosyllibles, moving both upper extremities. - Psychiatric Exam Psychiatric exam: Flat Affect - Skin Skin Exam: Dry Additional comments: Skin cool, dry, with mild erythemia at theupper left arm showing healing cellulitis. Results - Vital Signs Recent Vital Signs: Last Vital Signs Temp 97.6 F 04/16/18 01:05 Pulse 100 H 04/16/18 01:05 Resp 20 04/16/18 01:05 BP 161/79 H 04/16/18 01:05 Pulse Ox 98 04/16/18 01:05 - Labs Result Diagrams: 04/16/18 08:47 04/16/18 08:47 Labs: Laboratory Results - last 24 hr 04/16/18 04/16/18 04/16/18 01:49 02:00 02:00 WBC 19.0 H D RBC 5.16 Hgb 15.2 D Hct 47.3 H MCV 91.7 D MCH 29.4 MCHC 32.1 L RDW 16.2 H Plt Count 496 H D MPV 8.1 Neut % (Auto) 66.5 Lymph % (Auto) 28.0 Ashley % (Auto) 3.2 Eos % (Auto) 2.1 Baso % (Auto) 0.2 Neut # (Auto) 12.7 H Lymph # (Auto) 5.3 H Ashley # (Auto) 0.6 Eos # (Auto) 0.4 Baso # (Auto) 0.0 PT INR APTT pCO2 16 L* pO2 76 L HCO3 16.0 L ABG pH 7.41 ABG Total CO2 10.6 L ABG O2 Saturation 97.9 ABG O2 Content 20.3 ABG Base Excess -11.3 L ABG Hemoglobin 15.3 ABG Carboxyhemoglobin 2.3 H POC ABG HHb (Measured) 2.0 ABG Methemoglobin 1.5 ABG O2 Capacity 20.7 Chong Test Yes A-a O2 Difference 189.0 Hgb O2 Saturation 94.2 L FiO2 40.0 Crit Value Called To Dr jonatan hilario Crit Value Called By Crit Value Read Back Y Blood Gas Notified Time 213 Sodium 141 Potassium 4.9 Chloride 101 Carbon Dioxide 19 L Anion Gap 26 H BUN 22 H Creatinine 0.9 Est GFR ( Amer) > 60 Est GFR (Non-Af Amer) > 60 Random Glucose 221 H Calcium 10.5 H Troponin I < 0.0120 04/16/18 02:00 WBC RBC Hgb Hct MCV MCH MCHC RDW Plt Count MPV Neut % (Auto) Lymph % (Auto) Ashley % (Auto) Eos % (Auto) Baso % (Auto) Neut # (Auto) Lymph # (Auto) Ashley # (Auto) Eos # (Auto) Baso # (Auto) PT 12.8 INR 1.1 APTT 25.4 L pCO2 pO2 HCO3 ABG pH ABG Total CO2 ABG O2 Saturation ABG O2 Content ABG Base Excess ABG Hemoglobin ABG Carboxyhemoglobin POC ABG HHb (Measured) ABG Methemoglobin ABG O2 Capacity Chong Test A-a O2 Difference Hgb O2 Saturation FiO2 Crit Value Called To Crit Value Called By Crit Value Read Back Blood Gas Notified Time Sodium Potassium Chloride Carbon Dioxide Anion Gap BUN Creatinine Est GFR ( Amer) Est GFR (Non-Af Amer) Random Glucose Calcium Troponin I Assessment & Plan - Assessment and Plan (Free Text) Plan: 83 years old female with hx of HTN, cerebral Palsy, and endometrial cancers s/p Chemotherapy. She was admitted on 04/03/18 and diagnosed with Cellulite of the left upper arm and sepsis. Blood culture grew Coag negative Streptococcus and urine culture grew Proteus Mirabilis. The theron cath was removed on 04/10/18 and a Picc line at the right Basilic vein was placed. BI APPLICATION DEVELOPER was called on AM of 04/16/18 because of AMS, central Cyanosis and SOB. 04/16/18 The ABG on Oxygen showed the PO2 in the 70s The Chest X Ray was with no infiltrate EKG was sinus Tachycardia with no sign of ischemia First Troponin was <0.0120 The CBC showed evidence of Hemoconcentration The renal labs showed evidence of Dehydration. #. Change in mental status secondary to metabolic encephalopathy with dehydration, acute kidney injury and probably toxic encephalopathy with sepsis. - CT Head to r/o CVA and transfer to ICU for closer management - IV fluid -I&O - Continue Antibiotics Vancomycin D#12 - Oxygen 40% ventimask 3. Dehydration with Azotemia - IV Fluids - follow Renal labs #. Sepsis with Bacteremia (Staph. Coag negative) - Dr Wolfe ID on consult -.Follow blood culture -. Continue Antibiotics #. Cerebral Palsy Jonatan hilario MD - Date & Time Date: 04/16/18 Time: 09:02
[2018-04-16 09:09] LABS: ALB/GLOB RATIO 1.1 (1.0-2.1); CALCIUM 9.4 mg/dL (8.4-10.2); WHITE BLOOD COUNT 38.5 K/uL (4.8-10.8)
[2018-04-16] MEDS: Proshield Plus GEL TOP PRN (10:06)
[2018-04-16] MEDS: Lactobacillus Acidophilus 500 MU Cap PO SCH ×2 (10:08→18:49)
--- NOTE | 2018-04-16 10:45 | CP.PCM.PN ---
Subjective - Date & Time of Evaluation Date of Evaluation: 04/16/18 Time of Evaluation: 08:00 - Subjective Subjective: events noted - sudden onset resp distress ? PE seen yesterday had no resp complaints / speaking in full sentences ? PE Vanco level is elevated- Vanco on hold will repeat septic work uup Objective - Vital Signs/Intake and Output Vital Signs (last 24 hours): Temp Pulse Resp BP Pulse Ox 97.6 F 100 H 20 161/79 H 98 04/16/18 01:05 04/16/18 01:05 04/16/18 01:05 04/16/18 01:05 04/16/18 01:05 - Medications Medications: Current Medications Acetaminophen (Tylenol 325mg Tab) 650 mg PO Q6 PRN PRN Reason: Fever >100.4 F Dimethicone (Proshield Plus Skin Protectant) 1 applic TOP Q8 PRN PRN Reason: Excoriation Last Admin: 04/16/18 10:06 Dose: 1 applic Sodium Chloride (Sodium Chloride 0.9%) 1,000 mls @ 100 mls/hr IV .Q10H [facility] Stop: 04/16/18 15:29 Last Admin: 04/16/18 05:35 Dose: 100 mls/hr Lactobacillus Acidophilus (Bacid Acidophilus) 1 cap PO BID [facility] Last Admin: 04/16/18 10:08 Dose: 1 cap Nystatin (Nystop Topical Powder) 1 applic TOP TID [facility] Last Admin: 04/16/18 10:05 Dose: 1 applic - Labs Labs: 04/16/18 08:47 04/16/18 08:47 PT 12.8 Seconds (9.8-13.1) 04/16/18 02:00 INR 1.1 04/16/18 02:00 APTT 25.4 Seconds (25.6-37.1) L 04/16/18 02:00 - Constitutional Appears: In Acute Distress, Confused - Head Exam Head Exam: NORMOCEPHALIC - Eye Exam Eye Exam: absent: Scleral icterus - ENT Exam ENT Exam: Mucous Membranes Dry - Neck Exam Neck Exam: absent: Lymphadenopathy - Respiratory Exam Respiratory Exam: Decreased Breath Sounds, Rhonchi - Cardiovascular Exam Cardiovascular Exam: Tachycardia, REGULAR RHYTHM - GI/Abdominal Exam GI & Abdominal Exam: Distended - Rectal Exam Rectal Exam: Deferred - Exam Exam: NORMAL INSPECTION - Extremities Exam Extremities Exam: absent: Pedal Edema - Back Exam Back Exam: absent: CVA tenderness (L), CVA tenderness (R) - Neurological Exam Neurological Exam: Altered Assessment and Plan (1) Cerebral palsy Status: Acute (2) Left arm cellulitis Status: Acute (3) Sepsis Status: Acute (4) Pressure ulcer of back Status: Acute - Assessment and Plan (Free Text) Assessment: r/o PE r/o Sepsis Vanco on hold Maxepime added for CT angio chest
[2018-04-16] MEDS: Cefepime 1 GM in Sodium Chloride 0.9% 100 ML IVPB SCH ×2 (11:12→23:30)
[2018-04-16 12:52] LABS: ANISOCYTOSIS SLIGHT; BANDS 4 % (0-2); LYMPHOCYTE 6 % (20-50); MONOCYTE 5 % (0-10); MYELOCYTE 1 % (0-0); NEUTROPHIL 84 % (42-75); PLATELET ESTIMATE NORMAL (NORMAL); TOTAL CELLS COUNTED 100
[2018-04-16 12:53] LABS: GIANT PLATELETS PRESENT; OVALOCYTES SLIGHT; TEARDROP CELLS SLIGHT
[2018-04-16] MEDS: Sodium Chloride 0.9% 1,000 ML IV SCH ×2 (14:00→15:00)
[2018-04-16 16:32] VITALS: TEMP 94.2
--- NOTE | 2018-04-16 17:21 | CARD ---
APPROVED REPORT Date of service: 04/16/2018 EKG Measurement Heart [id number] 200P [id number] <Conclusion> Sinus tachycardia Possible Inferior infarct, age undetermined Abnormal ECG
--- NOTE | 2018-04-16 18:02 | PCM.SEPTIC ---
Sepsis Progress Note - Reassessment Type Date of Evaluation: 04/16/18 Time of Evaluation: 18:00 - Non Invasive Reassessment Were the most recent vital sign reviewed: Yes Vital Sign (Latest): Temp Pulse Resp BP Pulse Ox 94.2 F L 117 H 21 161/79 H 100 04/16/18 16:00 04/16/18 16:00 04/16/18 16:00 04/16/18 01:05 04/16/18 16:00 Cardiovascular: Yes: Regular Rate, Rhythm, Chest Non Tender, Tachycardia Respiratory: Yes: Normal Breath Sounds Capillary Refill: Normal (Less than 2 sec) Pulses: Decreased Radial, Decreased Dorsalis Pedis, Decreased Posterior Tibialis Skin: Warm, Dry - Invasive Reassessment (complete 2 of 4) Was a Central Venous Pressure Measurement obtained within 6 Hours after the presentation of septic shock: No Was a central venous oxygen measurement obtained within 6 hours after the presentation of septic shock: No Was a bedside cardiovascular ultrasound performed within 6 hours after the presentation of septic shock: No Was a passive leg raise performed or was a fluid challenge performed within 6 hrs of the initial fluid bolus: Yes Passive Leg Raise Result: Negative (lactic acid level pending) Fluid Challenge performed: Yes
[2018-04-16 18:36] LABS: URINE BACTERIA RARE (<OCC); URINE BILIRUBIN NEGATIVE (NEGATIVE); URINE BLOOD NEGATIVE (NEGATIVE); URINE CLARITY CLEAR (Clear); URINE COLOR STRAW (YELLOW); URINE GLUCOSE (UA) NEG (Normal); URINE LEUKOCYTE ESTERASE NEG Leu/uL (Negative); URINE PROTEIN NEGATIVE (NEGATIVE); URINE UROBILINOGEN 0.2-1.0 mg/dL (0.2-1.0)
[2018-04-16] MEDS ORDERED: Phenylephrine 30 MG in Sodium Chloride 0.9% 250 ML IV SCH (19:00)
--- NOTE | 2018-04-16 19:25 | PN ---
DATE: 04/16/2018 SUBJECTIVE: The patient seen and examined. Interim events noted. Consults noted and appreciated. The patient had CREATIVE ASSISTANT done today at 02:30 a.m. for cyanosis. Currently the patient is lethargic, not responsive to verbal stimulus and non-cooperative for physical exam. Not able to provide informative history or review of system: This is change from her mental status from yesterday when the patient was fully conversant.. PHYSICAL EXAMINATION: GENERAL: The patient is in on VentiMask. No acute respiratory distress, but noncommunicative. VITAL SIGNS: BP is low with palpable and auscultatory personally was 82/64. HEENT EXAM: Pupils reacting to light. HEART EXAM: S1, S2 normal and regular. LUNGS: Good bilateral air exchange. No rales or rhonchi. ABDOMEN: Soft, nontender. No organomegaly. No fluid. Bowel sounds are present and normal. EXTREMITIES EXAM: No calf swelling. No tenderness. No acute ischemia. Left antecubital cellulitis has healed. The patient does move spontaneously upper extremities. No movements noted in lower extremity. ____. DIAGNOSTIC DATA: Available diagnostic ____. Chest x-ray seemed clear. CBC and CMP is acceptable. ASSESSMENT AND PLAN: Overall the patient at this time looks critically sick with septic shock, may be pulmonary embolism. Case discussed with hospitalist. We will transfer the patient to intensive care unit. We will also give the patient normal saline one liter per bolus and order CTA of chest and CAT scan of head. Plan as ordered. Case and plan was discussed with nurses and hospitalists. Case was discussed with stunner. Plan as ordered. Maulik Pierre MD
--- NOTE | 2018-04-16 21:37 | PCM.PROC ---
Procedures Attestation:: I certify that I have explained the specified Operation(s) or Procedure(s), risks, benefits and reasonable alternatives to the Patient and/or other person responsible. The opportunity was given to ask questions and all questions answered - Intubation Time Out Performed: Yes Sedative: None Laryngoscope: Tamiko ET Tube Size: 7.5 (This patient was intubated because of Impending respiratory arrest.) ET Tube Uncuffed: No ET Tube Secured Locarion: Lips ET Tube Placement Confirmation: Visualized Passing Through Cords, Breath Sounds Equal Bilaterally, No Breath Sounds Over Epigastrum, Confirmation w/Capnometry Patient Tolerated Procedure: No Complications Procedure Immediate Complications: None
--- NOTE | 2018-04-16 21:38 | CP.PCM.PN ---
Subjective - Date & Time of Evaluation Date of Evaluation: 04/16/18 Time of Evaluation: 21:37 - Subjective Subjective: Called to evaluate this patient with SBP70s on Phenylephrine, and Sp02 not detected on the monitor. Examination find the patient very lethargic with respirtory depression. Attempts at Arterial Blood Gas was unsuccessful. The patient began having agonal respiration and decision was made to intubate as this was sign of impending respiratory arrest. Jonatan Martinez MD Objective - Vital Signs/Intake and Output Vital Signs (last 24 hours): Temp Pulse Resp BP Pulse Ox 94.2 F L 120 H 37 H 67/41 L 61 L 04/16/18 16:00 04/16/18 17:00 04/16/18 18:00 04/16/18 18:00 04/16/18 17:00 Intake and Output: 04/16/18 04/17/18 18:59 06:59 Intake Total 3452.5 Output Total 270 Balance 3182.5 - Medications Medications: Current Medications Acetaminophen (Tylenol 325mg Tab) 650 mg PO Q6 PRN PRN Reason: Fever >100.4 F Dimethicone (Proshield Plus Skin Protectant) 1 applic TOP Q8 PRN PRN Reason: Excoriation Last Admin: 04/16/18 10:06 Dose: 1 applic Enoxaparin Sodium (Lovenox) 70 mg SC Q12 [facility] G; Protocol Cefepime HCl 1 gm/ Sodium (Chloride) 100 mls @ 100 mls/hr IVPB Q12 [facility]; Protocol Last Admin: 04/16/18 11:12 Dose: 100 mls/hr Norepinephrine Bitartrate 4 mg (/ Dextrose) 254 mls @ 9.53 mls/hr IV .Q24H [facility] G; Protocol Last Titration: 04/16/18 15:20 Dose: 15 mcg/min, 57.15 mls/hr Sodium Chloride (Sodium Chloride 0.9%) 1,000 mls @ 999 mls/hr IV .Q1H1M [facility] G Stop: 04/17/18 17:37 Last Admin: 04/16/18 15:00 Dose: 999 mls/hr Phenylephrine HCl 30 mg/ (Sodium Chloride) 253 mls @ 10.12 mls/hr IV .Q24H [facility] G; Protocol Stop: 04/17/18 18:50 Sodium Chloride (Sodium Chloride 0.9%) 1,000 mls @ 150 mls/hr IV .Q6H40M [facility] Stop: 04/17/18 18:51 Lactobacillus Acidophilus (Bacid Acidophilus) 1 cap PO BID [facility] Last Admin: 04/16/18 18:49 Dose: Not Given Nystatin (Nystop Topical Powder) 1 applic TOP TID [facility] Last Admin: 04/16/18 13:00 Dose: 1 applic - Labs Labs: 04/16/18 08:47 04/16/18 08:47 PT 12.8 Seconds (9.8-13.1) 04/16/18 02:00 INR 1.1 04/16/18 02:00 APTT 25.4 Seconds (25.6-37.1) L 04/16/18 02:00
[2018-04-16] MEDS: Enoxaparin 80 mg Syringe SC SCH (23:30)
--- NOTE | 2018-04-16 23:45 | PN ---
DATE: 04/16/2018 LOCATION: The patient in ICU, bed 425. Time spent 50 minutes. The patient is seen and evaluated at the bedside. Past medical, surgical, social, family history reviewed. Case discussed in ICU a.m. rounds and management guidelines were formulated. SUBJECTIVE: An 83-year-old female, morbidly obese, history of cerebral palsy, endometrial CA, status post hysterectomy, cholecystectomy, status post left MediPort for chemo. Her CA has been in remission. Presented to emergency room complaining of constipation. Noted to have a rash on the left arm without any drainage. Suspected cellulitis. Admitted to the floor. Seen by ID consult. Started on vancomycin for gram-positive bacteremia. Removed left Port-A-Cath. Status post [employer] this morning. Noted leukocytosis. Admitted to ICU. In ICU, the patient was noted to be cyanotic, reduced blood pressure, tachycardic on telemetry. Placed on 100% nonrebreather. Saturation maintained at 100%. Warm blanket placd. Temperature has returned to normal. Currently remains alert and awake. Follows commands. Denies shortness of breath, chest pain or palpitation. PHYSICAL EXAMINATION: VITAL SIGNS: Temperature 97.6; heart rate 122; respiratory rate 30 to 32, thoracoabdominal; blood pressure 147/86. Intake 500 mL, output 500 mL. HEAD, EYES, EARS, NOSE AND THROAT: Pupils are 3 mm, reactive. Conjunctivae pink. Sclerae white. NECK: Supple. Short neck. Reduced oropharyngeal airspace. CHEST: Bilateral breath sounds, diminished in intensity. Left Port-A-Cath site with minimal erythema. HEART: Rhythm regular. S1 and S2 are rapid and distant. No S3 or S4 gallop. ABDOMEN: Bowel sounds present. Soft, pendulous. EXTREMITIES: Mild erythema on the left arm. Stage I sacral decubitus. SKIN: As noted with rash on the left arm. No palpable cord. DP palpable. Capillary refill less than two seconds. NEUROLOGIC EXAMINATION: Alert and awake. Weakness of left arm, both legs from cerebral palsy. Able to follow simple commands. MEDICATIONS: Cefepime 1 g IV every 12 hours, lactobacillus one capsule twice daily, Levophed now off as blood pressure is maintained, sodium chloride at 100 mL per hour. LABORATORY DATA: WBC 38.5, hemoglobin 13.9, hematocrit 44.7, platelet count 392, neutrophils 89.6, lymphocytes 5.9, monocytes 3.6. PT 12.8, INR 1.1, PTT 25.4. ABG: The pH of 7.41, pCO2 of 60, pO2 of 76, saturation 97.9 on FiO2 40%. SMA-7: Sodium 141, potassium 4.7, chloride 109, CO2 of 17, blood urea nitrogen 24, creatinine 1.3, random glucose 155, calcium 9.4, magnesium 1.7. AST 288, ALT 149, alkaline phosphatase 106, total protein 7.7, albumin 4. Urinalysis: Rbc's 8, wbc's 17. Toxicology: Vancomycin trough level 26.5. Serology: Influenza A and B negative. Microbiology: Wound culture positive for Proteus mirabilis, sensitive to ceftazidime. Blood culture positive for coagulase-negative Staphylococcus. Chest x-ray: Right PICC line in situ. Left MediPort removed. No pneumothorax. No pleural effusion. No acute infiltrate. IMPRESSION AND PLAN: 1. Neurologic: Septic toxic metabolic encephalopathy; however, alert, awake, follows commands appropriate. Status post cerebral palsy with weakness of upper and lower extremities. 2. Pulmonary: Metabolic acidosis with respiratory alkalosis with hypoxemia. No clear infiltrate in the chest x-ray. No pleural effusion. 3. Cardiac: Tachycardia related to sepsis. Ejection fraction within normal range. If fever persists, may need to rule out vegetations with possibly transesophageal echocardiography. 4. Hematology: Leukocytosis secondary to urinary tract infection and/or cellulitis with gram-positive bacteremia and wound culture positive for Proteus mirabilis. 5. Renal: Mild prerenal azotemia. Continue intravenous hydration, Ringer's lactate at 100 mL per hour. 6. Gastroenterology: Abnormal liver function tests, unclear, probably related to hypotension. Monitor them closely. History of constipation. X-rays with mild ileus, no mechanical obstruction. 7. Endocrinology: No history of hypothyroidism or diabetes. Maintain blood sugar below 180. Mild hypoalbuminemia secondary to nutritional deficiency. 8. Sacral stage I decubitus. Wound care. Change of position. Almaguer in place for adequate urine intake and output. Tello Saini MD
[2018-04-17] MEDS ORDERED: Sodium Chloride 0.9% 1,000 ML IV SCH (00:30)
[2018-04-17 01:08] LABS: ABG ALLEN TEST YES; ARTERIAL BLOOD GAS HCO3 5.9 mmol/L (21-28); ARTERIAL BLOOD GAS O2 SAT 45.4 % (95-98); ARTERIAL BLOOD GAS PCO2 50 mm/Hg (35-45); ARTERIAL BLOOD GAS PH 6.93 (7.35-7.45); ARTERIAL BLOOD GAS PO2 31 mm/Hg (80-100)
[2018-04-17] MEDS ORDERED: Sodium Bicarbonate 7.5% (0.9 MEQ/ML) 50ML INJ IV ONE ×3 (01:21→05:21)
[2018-04-17 05:12] LABS: ABG ALLEN TEST YES; ARTERIAL BLOOD GAS HEMOGLOBIN 14.2 g/dL (11.7-17.4); ARTERIAL BLOOD GAS O2 CAPACITY 19.3 mL/dL (16-24); ARTERIAL BLOOD GAS O2 CONTENT 8.9 ML/dL (15-23); ARTERIAL BLOOD GAS PCO2 38 mm/Hg (35-45); ARTERIAL BLOOD GAS PH 7.07 (7.35-7.45); ARTERIAL BLOOD GAS PO2 29 mm/Hg (80-100); ARTERIAL BLOOD GAS TCO2 12.2 mmol/L (22-28)
[2018-04-17 06:57] LABS: HEMOGLOBIN 11.3 g/dL (12.0-16.0); MEAN CELL VOLUME 94.8 fl (81.0-99.0); MEAN CORPUSCULAR HEMOGLOBIN 28.7 pg (27.0-31.0); MEAN CORPUSCULAR HGB CONC 30.3 g/dL (33.0-37.0); RBC 3.95 Mil/uL (3.80-5.20); RED CELL DISTRIBUTION WIDTH 17.3 % (11.5-14.5)
[2018-04-17 06:59] LABS: WHITE BLOOD COUNT 53.7 K/uL (4.8-10.8)
[2018-04-17] MEDS ORDERED: Phenylephrine 30 MG in Sodium Chloride 0.9% 250 ML IV SCH (07:30)
[2018-04-17 07:36] VITALS: RESP 18; O2SAT 83
--- NOTE | 2018-04-17 08:29 | RAD ---
Date of service: 04/16/2018 HISTORY: intubated COMPARISON: 04/16/2018 FINDINGS: Endotracheal tube terminates 1.5 cm proximal to the daniella. The nasogastric tube is coiled in the stomach. The right PICC line terminates in the SVC LUNGS: The lungs are clear. PLEURA: No pleural effusions or pneumothorax. CARDIOVASCULAR: The heart is normal in size. No aortic atherosclerotic calcification present. OSSEOUS STRUCTURES: Within normal limits for the patient's age. VISUALIZED UPPER ABDOMEN: Normal. OTHER FINDINGS: Surgical clips in the right upper quadrant are related to prior cholecystectomy. IMPRESSION: Endotracheal tube terminates 1.5 cm proximal to the daniella. The nasogastric tube is coiled in the stomach. The right PICC line terminates in the SVC. No acute findings.
--- NOTE | 2018-04-17 08:48 | RAD ---
Date of service: 04/17/2018 HISTORY: intubated COMPARISON: 04/16/2018 FINDINGS: The endotracheal tube terminates in the mid trachea. The nasogastric tube is coiled in the stomach. The right PICC line terminates in the SVC. LUNGS: The lungs are well inflated. PLEURA: Small left pleural effusion. No large right pleural effusion or pneumothorax. CARDIOVASCULAR: The heart is normal in size. No aortic atherosclerotic calcification present. OSSEOUS STRUCTURES: Within normal limits for the patient's age. VISUALIZED UPPER ABDOMEN: Normal. OTHER FINDINGS: None. IMPRESSION: Small left pleural effusion. Underlying atelectasis/pneumonia cannot be excluded. Stable position of endotracheal tube. The nasogastric tube is coiled in the stomach.
--- NOTE | 2018-04-17 08:59 | US ---
Date of service: 04/16/2018 PROCEDURE: Bilateral lower extremity venous duplex Doppler. HISTORY: dvt COMPARISON: None available. TECHNIQUE: Bilateral common femoral, superficial femoral, popliteal and posterior tibial veins were evaluated. Flow was assessed with color Doppler, compressibility, assessment of phasic flow and augmentation response. The posterior tibial veins were not visualized. FINDINGS: COMMON FEMORAL VEIN: Right CFV: Unremarkable. Left CFV: Unremarkable. SUPERFICIAL FEMORAL VEIN: Right SFV: Unremarkable. Left SFV: Unremarkable. POPLITEAL VEIN: Right Popliteal: Unremarkable. Left Popliteal: Unremarkable. POSTERIOR TIBIAL VEIN: Right PTV: Unremarkable. Left PTV: Unremarkable. OTHER FINDINGS: None. IMPRESSION: No evidence of deep venous thrombosis. A preliminary report was provided by [facility].
--- NOTE | 2018-04-17 09:11 | CP.PCM.CON ---
History of Present Illness - History of Present Illness History of Present Illness: 83 years of age female I was called to see her for renal consultation because of a rising BUN/creatinine.. No history available from the patient patient is intubated and not responding at all and status post CARGO ROUTER shortly. patient admitted with appeared to be redness of the arm and the patient has septic shock and the history was taken from the medical record and as noted in the medical record. Also noted patient receiving antibiotics she was intubated on respirator and vancomycin has been stopped recently because of high level. Social history as noted in the history and physical examination Review of Systems - Review of Systems Systems not reviewed;Unavailable: Respiratory Distress - Constitutional Constitutional: Anorexia, Fever Additional comments: unresponsive - EENT Eyes: absent: Exophthalmos - Cardiovascular Cardiovascular: Rapid Heart Rate. absent: Chest Pain, Edema, Leg Ulcers - Respiratory Respiratory: absent: Hemoptysis Additional comments: on vent. - Gastrointestinal Gastrointestinal: absent: Abdominal Pain, Coffee Ground Emesis, Cramping - Genitourinary Genitourinary: Nocturia - Musculoskeletal Musculoskeletal: As Per HPI. absent: Arthralgias - Integumentary Integumentary: As Per HPI - Neurological Neurological: As Per HPI Additional comments: unresponsive, flat - Psychiatric Psychiatric: As Per HPI - Endocrine Endocrine: As Per HPI, Fatigue - Hematologic/Lymphatic Hematologic: absent: Easy Bleeding Past Patient History - Past Medical History & Family History Past Medical History?: Yes - Past Social History Smoking Status: Never Smoked Chewing Tobacco Use: No Cigar Use: No Alcohol: None Drugs: Denies - CARDIAC Hx Hypertension: Yes - PULMONARY Hx Respiratory Disorders: No - NEUROLOGICAL Hx Neurological Disorder: Yes (Cerebral Palsy) - HEENT Hx HEENT Problems: Yes Other/Comment: Glasses - RENAL Hx Chronic Kidney Disease: No - ENDOCRINE/METABOLIC Hx Endocrine Disorders: No - HEMATOLOGICAL/ONCOLOGICAL Hx Blood Disorders: No Hx Blood Transfusions: Yes Hx Blood Transfusion Reaction: No Hx Cancer: Yes (Uterine cancer) Hx Chemotherapy: Yes - INTEGUMENTARY Hx Dermatological Problems: No - MUSCULOSKELETAL/RHEUMATOLOGICAL Hx Musculoskeletal Disorders: Yes Hx Falls: No Hx Unsteady Gait: Yes - GASTROINTESTINAL Hx Gastrointestinal Disorders: Yes Hx Constipation: Yes - GENITOURINARY/GYNECOLOGICAL Hx Genitourinary Disorders: Yes Other/Comment: Endometrial Cancer - PSYCHIATRIC Hx Psychophysiologic Disorder: No Hx Substance Use: No - SURGICAL HISTORY Hx Appendectomy: Yes Hx Cholecystectomy: Yes - ANESTHESIA Hx Anesthesia: Yes Hx Anesthesia Reactions: No Hx Malignant Hyperthermia: No Meds Home Medications: Home Medication List Medication Instructions Recorded Confirmed Type Lactobacillus Acidophilus [Bacid 1 cap PO BID cap 04/12/18 Rx Acidophilus] Nystatin [Nystop Topical Powder] 1 applic TOP TID bottle 04/12/18 Rx Vancomycin 1 GM [Vancomycin 1GM in 1 gm IVPB DAILY #10 bag 04/12/18 Rx Normal Saline Addvantage] Allergies/Adverse Reactions: Allergies Allergy/AdvReac Type Severity Reaction Status Date / Time diphenhydramine Allergy RASH Verified 04/03/18 19:45 [From Benadryl] morphine Allergy RASH Verified 04/03/18 19:45 Penicillins Allergy RASH Verified 04/03/18 19:45 - Medications Medications: Current Medications Acetaminophen (Tylenol 325mg Tab) 650 mg PO Q6 PRN PRN Reason: Fever >100.4 F Dimethicone (Proshield Plus Skin Protectant) 1 applic TOP Q8 PRN PRN Reason: Excoriation Last Admin: 04/16/18 10:06 Dose: 1 applic Enoxaparin Sodium (Lovenox) 70 mg SC Q12 [facility]; Protocol Last Admin: 04/16/18 23:30 Dose: 70 mg Cefepime HCl 1 gm/ Sodium (Chloride) 100 mls @ 100 mls/hr IVPB Q12 [facility]; Protocol Last Admin: 04/16/18 23:30 Dose: 100 mls/hr Norepinephrine Bitartrate 4 mg (/ Dextrose) 254 mls @ 9.53 mls/hr IV .Q24H [facility]; Protocol Last Titration: 04/16/18 15:20 Dose: 15 mcg/min, 57.15 mls/hr Sodium Chloride (Sodium Chloride 0.9%) 1,000 mls @ 999 mls/hr IV .Q1H1M [facility] Stop: 04/17/18 17:37 Last Admin: 04/16/18 15:00 Dose: 999 mls/hr Phenylephrine HCl 30 mg/ (Sodium Chloride) 253 mls @ 10.12 mls/hr IV .Q24H [facility]; Protocol Stop: 04/17/18 18:50 Last Titration: 04/16/18 23:18 Dose: 80 mcg/min, 40.48 mls/hr Sodium Chloride (Sodium Chloride 0.9%) 1,000 mls @ 150 mls/hr IV .Q6H40M [facility] Stop: 04/17/18 18:51 Last Admin: 04/16/18 20:09 Dose: Not Given Sodium Chloride (Sodium Chloride 0.9%) 1,000 mls @ 1,000 mls/hr IV .Q1H [facility] G Stop: 04/18/18 00:17 Last Admin: 04/16/18 23:00 Dose: 1,000 mls/hr Norepinephrine Bitartrate 4 mg (/ Dextrose) 254 mls @ 57.15 mls/hr IV .Q4H27M [facility]; Protocol Last Admin: 04/17/18 05:20 Dose: 30 mcg/min, 114.3 mls/hr Sodium Bicarbonate 150 meq/ (Sodium Chloride) 1,150 mls @ 150 mls/hr IV .Q7H40M [facility] Stop: 04/18/18 01:24 Last Admin: 04/17/18 02:29 Dose: 150 mls/hr Phenylephrine HCl 30 mg/ (Sodium Chloride) 253 mls @ 40.48 mls/hr IV .Q6H15M [facility]; Protocol Stop: 04/18/18 07:20 Last Admin: 04/17/18 07:40 Dose: 80 mcg/min, 40.48 mls/hr Lactobacillus Acidophilus (Bacid Acidophilus) 1 cap PO BID [facility] Last Admin: 04/16/18 18:49 Dose: Not Given Nystatin (Nystop Topical Powder) 1 applic TOP TID [facility] Last Admin: 04/16/18 20:00 Dose: 1 applic Physical Exam - Constitutional Appears: In Acute Distress, Cachectic, Chronically Ill - Eye Exam Eye Exam: Conjunctival injection. absent: Nystagmus - ENT Exam ENT Exam: Mucous Membranes Dry - Neck Exam Neck exam: Negative for: Lymphadenopathy - Respiratory Exam Respiratory Exam: Rhonchi. absent: Chest Wall Tenderness Additional comments: on vent. - Cardiovascular Exam Cardiovascular Exam: Irregular Rhythm. absent: Gallop, JVD, Rubs - GI/Abdominal Exam GI & Abdominal Exam: Normal Bowel Sounds. absent: Distended, Guarding - Extremities Exam Extremities exam: Negative for: calf tenderness - Back Exam Back exam: absent: CVA tenderness (L), CVA tenderness (R) - Neurological Exam Neurological exam: Altered - Psychiatric Exam Psychiatric exam: Flat Affect Results - Vital Signs Recent Vital Signs: Last Vital Signs Temp 94.2 F L 04/16/18 16:00 Pulse 140 H 04/17/18 07:40 Resp 18 04/17/18 03:00 BP 104/51 L 04/17/18 03:00 Pulse Ox 83 L 04/17/18 02:00 - Labs Result Diagrams: 04/17/18 06:35 04/16/18 08:47 Labs: Laboratory Results - last 24 hr 04/16/18 04/16/18 04/16/18 01:40 08:47 08:47 WBC 38.5 H* D RBC 4.82 Hgb 13.9 Hct 44.7 MCV 92.9 MCH 28.9 MCHC 31.1 L RDW 16.4 H Plt Count 392 D MPV 7.3 Neut % (Auto) 89.6 H Lymph % (Auto) 5.9 L [place] % (Auto) 3.6 Eos % (Auto) 0.1 Baso % (Auto) 0.8 Neut # (Auto) 34.4 H Lymph # (Auto) 2.3 [place] # (Auto) 1.4 H Eos # (Auto) 0.0 Baso # (Auto) 0.3 H Neutrophils % (Manual) 84 H Band Neutrophils % 4 H Lymphocytes % (Manual) 6 L Monocytes % (Manual) 5 Myelocytes % 1 H Platelet Estimate Normal Giant Platelets Present Anisocytosis (manual) Slight Tear Drop Cells Slight Ovalocytes Slight pCO2 pO2 HCO3 ABG pH ABG Total CO2 ABG O2 Saturation ABG O2 Content ABG Base Excess ABG Hemoglobin ABG Carboxyhemoglobin POC ABG HHb (Measured) ABG Methemoglobin ABG O2 Capacity Chong Test ABG Potassium A-a O2 Difference Hgb O2 Saturation Glucose Lactate Vent Mode Mechanical Rate FiO2 Tidal Volume PEEP Blood Gas Comments Crit Value Called To Crit Value Called By Crit Value Read Back Blood Gas Notified Time Sodium 141 Potassium 4.7 Chloride 109 H Carbon Dioxide 17 L Anion Gap 20 BUN 24 H Creatinine 1.3 H Est GFR ( Amer) 48 Est GFR (Non-Af Amer) 39 POC Glucose (mg/dL) 232 H Random Glucose 155 H Lactic Acid Calcium 9.4 Total Bilirubin 0.6 AST 288 H D ALT 149 H D Alkaline Phosphatase 106 Troponin I Total Protein 7.7 Albumin 4.0 Globulin 3.7 Albumin/Globulin Ratio 1.1 Procalcitonin Arterial Blood Potassium Urine Color Urine Clarity Urine pH Ur Specific [place] Urine Protein Urine Glucose (UA) Urine Ketones Urine Blood Urine Nitrate Urine Bilirubin Urine Urobilinogen Ur Leukocyte Esterase Urine Microscopic WBC Urine Bacteria Vancomycin Trough 04/16/18 04/16/18 04/16/18 08:47 08:48 13:44 WBC RBC Hgb Hct MCV MCH MCHC RDW Plt Count MPV Neut % (Auto) Lymph % (Auto) [place] % (Auto) Eos % (Auto) Baso % (Auto) Neut # (Auto) Lymph # (Auto) [place] # (Auto) Eos # (Auto) Baso # (Auto) Neutrophils % (Manual) Band Neutrophils % Lymphocytes % (Manual) Monocytes % (Manual) Myelocytes % Platelet Estimate Giant Platelets Anisocytosis (manual) Tear Drop Cells Ovalocytes pCO2 pO2 HCO3 ABG pH ABG Total CO2 ABG O2 Saturation ABG O2 Content ABG Base Excess ABG Hemoglobin ABG Carboxyhemoglobin POC ABG HHb (Measured) ABG Methemoglobin ABG O2 Capacity Chong Test ABG Potassium A-a O2 Difference Hgb O2 Saturation Glucose Lactate Vent Mode Mechanical Rate FiO2 Tidal Volume PEEP Blood Gas Comments Crit Value Called To Crit Value Called By Crit Value Read Back Blood Gas Notified Time Sodium Potassium Chloride Carbon Dioxide Anion Gap BUN Creatinine Est GFR ( Amer) Est GFR (Non-Af Amer) POC Glucose (mg/dL) Random Glucose Lactic Acid 8.2 H* Calcium Total Bilirubin AST ALT Alkaline Phosphatase Troponin I 0.0490 Total Protein Albumin Globulin Albumin/Globulin Ratio Procalcitonin Arterial Blood Potassium Urine Color Urine Clarity Urine pH Ur Specific [place] Urine Protein Urine Glucose (UA) Urine Ketones Urine Blood Urine Nitrate Urine Bilirubin Urine Urobilinogen Ur Leukocyte Esterase Urine Microscopic WBC Urine Bacteria Vancomycin Trough 26.5 H 04/16/18 04/16/18 04/16/18 13:44 14:13 17:50 WBC RBC Hgb Hct MCV MCH MCHC RDW Plt Count MPV Neut % (Auto) Lymph % (Auto) [place] % (Auto) Eos % (Auto) Baso % (Auto) Neut # (Auto) Lymph # (Auto) [place] # (Auto) Eos # (Auto) Baso # (Auto) Neutrophils % (Manual) Band Neutrophils % Lymphocytes % (Manual) Monocytes % (Manual) Myelocytes % Platelet Estimate Giant Platelets Anisocytosis (manual) Tear Drop Cells Ovalocytes pCO2 pO2 HCO3 ABG pH ABG Total CO2 ABG O2 Saturation ABG O2 Content ABG Base Excess ABG Hemoglobin ABG Carboxyhemoglobin POC ABG HHb (Measured) ABG Methemoglobin ABG O2 Capacity Chong Test ABG Potassium A-a O2 Difference Hgb O2 Saturation Glucose Lactate Vent Mode Mechanical Rate FiO2 Tidal Volume PEEP Blood Gas Comments Crit Value Called To Crit Value Called By Crit Value Read Back Blood Gas Notified Time Sodium Potassium Chloride Carbon Dioxide Anion Gap BUN Creatinine Est GFR ( Amer) Est GFR (Non-Af Amer) POC Glucose (mg/dL) Random Glucose Lactic Acid 9.2 H* Calcium Total Bilirubin AST ALT Alkaline Phosphatase Troponin I 0.1010 Total Protein Albumin Globulin Albumin/Globulin Ratio Procalcitonin 7.04 H Arterial Blood Potassium Urine Color Urine Clarity Urine pH Ur Specific [place] Urine Protein Urine Glucose (UA) Urine Ketones Urine Blood Urine Nitrate Urine Bilirubin Urine Urobilinogen Ur Leukocyte Esterase Urine Microscopic WBC Urine Bacteria Vancomycin Trough 04/16/18 04/17/18 04/17/18 18:22 01:05 04:17 WBC RBC Hgb Hct MCV MCH MCHC RDW Plt Count MPV Neut % (Auto) Lymph % (Auto) [place] % (Auto) Eos % (Auto) Baso % (Auto) Neut # (Auto) Lymph # (Auto) [place] # (Auto) Eos # (Auto) Baso # (Auto) Neutrophils % (Manual) Band Neutrophils % Lymphocytes % (Manual) Monocytes % (Manual) Myelocytes % Platelet Estimate Giant Platelets Anisocytosis (manual) Tear Drop Cells Ovalocytes pCO2 50 H 38 pO2 31 L* 29 L* HCO3 5.9 L* 9.0 L* ABG pH 6.93 L* 7.07 L* ABG Total CO2 12.0 L 12.2 L ABG O2 Saturation 45.4 L 46.0 L ABG O2 Content 8.9 L ABG Base Excess -21.9 L -18.5 L ABG Hemoglobin 14.2 ABG Carboxyhemoglobin 1.3 POC ABG HHb (Measured) 52.2 H ABG Methemoglobin 2.0 ABG O2 Capacity 19.3 Chong Test Yes Yes ABG Potassium 6.7 H* A-a O2 Difference 620.0 637.0 Hgb O2 Saturation 44.5 L Glucose 115 H Lactate 11.7 H* Vent Mode A/c A/c Mechanical Rate 12 18 FiO2 100.0 100.0 Tidal Volume 450 500 PEEP 5 Blood Gas Comments Pos mixed venous Possible mixed venous Crit Value Called To Jonatan hilario md Crit Value Called By 333 333 Crit Value Read Back Y Y Blood Gas Notified Time 108 511 Sodium 137.0 Potassium Chloride 106.0 Carbon Dioxide Anion Gap BUN Creatinine Est GFR ( Amer) Est GFR (Non-Af Amer) POC Glucose (mg/dL) Random Glucose Lactic Acid Calcium Total Bilirubin AST ALT Alkaline Phosphatase Troponin I Total Protein Albumin Globulin Albumin/Globulin Ratio Procalcitonin Arterial Blood Potassium 6.7 H* Urine Color Straw Urine Clarity Clear Urine pH 7.0 Ur Specific [place] 1.009 Urine Protein Negative Urine Glucose (UA) Neg Urine Ketones Negative Urine Blood Negative Urine Nitrate Negative Urine Bilirubin Negative Urine Urobilinogen 0.2-1.0 Ur Leukocyte Esterase Neg Urine Microscopic WBC 2 Urine Bacteria Rare Vancomycin Trough 04/17/18 04/17/18 06:35 08:29 WBC 53.7 H* RBC 3.95 Hgb 11.3 L D Hct 37.4 MCV 94.8 MCH 28.7 MCHC 30.3 L RDW 17.3 H Plt Count 291 D MPV Neut % (Auto) Lymph % (Auto) [place] % (Auto) Eos % (Auto) Baso % (Auto) Neut # (Auto) Lymph # (Auto) [place] # (Auto) Eos # (Auto) Baso # (Auto) Neutrophils % (Manual) Band Neutrophils % Lymphocytes % (Manual) Monocytes % (Manual) Myelocytes % Platelet Estimate Giant Platelets Anisocytosis (manual) Tear Drop Cells Ovalocytes pCO2 pO2 HCO3 ABG pH ABG Total CO2 ABG O2 Saturation ABG O2 Content ABG Base Excess ABG Hemoglobin ABG Carboxyhemoglobin POC ABG HHb (Measured) ABG Methemoglobin ABG O2 Capacity [place]ong Test ABG Potassium A-a O2 Difference Hgb O2 Saturation Glucose Lactate Vent Mode Mechanical Rate FiO2 Tidal Volume PEEP Blood Gas Comments Crit Value Called To Crit Value Called By Crit Value Read Back Blood Gas Notified Time Sodium Potassium Chloride Carbon Dioxide Anion Gap BUN Creatinine Est GFR ( Amer) Est GFR (Non-Af Amer) POC Glucose (mg/dL) 135 H Random Glucose Lactic Acid Calcium Total Bilirubin AST ALT Alkaline Phosphatase Troponin I Total Protein Albumin Globulin Albumin/Globulin Ratio Procalcitonin Arterial Blood Potassium Urine Color Urine Clarity Urine pH Ur Specific [place] Urine Protein Urine Glucose (UA) Urine Ketones Urine Blood Urine Nitrate Urine Bilirubin Urine Urobilinogen Ur Leukocyte Esterase Urine Microscopic WBC Urine Bacteria Vancomycin Trough Assessment & Plan (1) ZARA (acute kidney injury) Assessment and Plan: patient appeared to develop acute kidney injury most likely related to multifactorial including but not limited to septic shock perhaps antibiotics among other things. Septic shock Lactic acidosis cellulitis of the left upper extremity Recommendation Patient does not have blood pressure at this moment she was given intravenous normal saline IV fluid and she is receiving intravenous sodium bicarbonate IV drip. As discussed with the equipment detailer Prognosis is very poor We will get spot urine for sodium osmolality and creatinine Vancomycin on hold because of high level Status: Acute (2) Cerebral palsy Status: Acute (3) Left arm cellulitis Status: Acute
[2018-04-17] MEDS: Lactobacillus Acidophilus 500 MU Cap PO SCH (09:34)
[2018-04-17] MEDS: Enoxaparin 80 mg Syringe SC SCH (09:35)
[2018-04-17] MEDS ORDERED: EPINEPHrine- 1 MG in Sodium Chloride 0.9% 250 ML IVPB ONE ×2 (10:26→13:02)
--- NOTE | 2018-04-17 10:30 | CP.PCM.CON ---
History of Present Illness - History of Present Illness History of Present Illness: Asked to evaluate this 83 year old female because of SOB and cyanosis which began abruptly yesterday. She had been hospitalized and undergoing treatment for cellulitis. Wound culture grew Proteus mirabilis and two blood cultures were p ositive for coag negative Staph. She had been receiving prophylactic dose enoxaparin while on the medical floor and therapeutic dosing was initiated after transfer to the ICU yesterday. She had been receiving antibiotic therapy the duration of her hospitalization. Chest x-rays have shown bilateral aerated pulmonary parenchyma, poor inspiration, but no infiltrates. Overnight she has developed severe hypotension, increased leukocytosis, and had Code Blue this morning resulting in endotracheal intubation and mechanical ventilation. Her CXR remains clear, but there may now be a pleural effusion seen as well. She is unresponsive, extremities are cool to touch with peripheral cyanosis and multiple pressors are presently in use. No imaging would be possible at this time and a presumptive diagnosis of either septic shock or acute pulmonary embolism is being considered. There has been a question of possible cardiac tamponade raised as well and a repeat echocardiogram has been done at the [facility] just recently. Treatment at this time remains antibiotics for septic shock, volume resuscitation and pressors. Venous duplex of the lower extremities has been done without any DVT found, but this obviously does not rule out the posibility. She has already been started on therapeutic enoxaparin. Recent echo should be able to rule out tamponade. Her prognosis is extremely poor at this time. Physical exam did reveal bilateral lung aeration with few rhonchi, no wheezes, dependant dry rales posteriorly. Heart sounds are minimally heard, tachycardic. The abdomen appears soft, I do not hear bowel sounds presently. The extremities are cool to touch, peripheral cyanosis noted in the upper extremities. The lower extremities are warmer, but still cool, faint cyanosis of the toes is noted. Neck is supple, trachea is midline, neck veins do not appear distended. No cyanosis of the head or neck is observed. Pulses are not felt. The best I can recommend at this time is continued antibiotic treatment. Once the echo is viewed anticoagulation can continue if there is no sign of tamponade. Support oxygenation with mechanical ventilation as needed. Past Patient History - Past Medical History & Family History Past Medical History?: Yes - Past Social History Smoking Status: Never Smoked Chewing Tobacco Use: No Cigar Use: No Alcohol: None Drugs: Denies - CARDIAC Hx Hypertension: Yes - PULMONARY Hx Respiratory Disorders: No - NEUROLOGICAL Hx Neurological Disorder: Yes (Cerebral Palsy) - HEENT Hx HEENT Problems: Yes Other/Comment: Glasses - RENAL Hx Chronic Kidney Disease: No - ENDOCRINE/METABOLIC Hx Endocrine Disorders: No - HEMATOLOGICAL/ONCOLOGICAL Hx Blood Disorders: No Hx Blood Transfusions: Yes Hx Blood Transfusion Reaction: No Hx Cancer: Yes (Uterine cancer) Hx Chemotherapy: Yes - INTEGUMENTARY Hx Dermatological Problems: No - MUSCULOSKELETAL/RHEUMATOLOGICAL Hx Musculoskeletal Disorders: Yes Hx Falls: No Hx Unsteady Gait: Yes - GASTROINTESTINAL Hx Gastrointestinal Disorders: Yes Hx Constipation: Yes - GENITOURINARY/GYNECOLOGICAL Hx Genitourinary Disorders: Yes Other/Comment: Endometrial Cancer - PSYCHIATRIC Hx Psychophysiologic Disorder: No Hx Substance Use: No - SURGICAL HISTORY Hx Appendectomy: Yes Hx Cholecystectomy: Yes - ANESTHESIA Hx Anesthesia: Yes Hx Anesthesia Reactions: No Hx Malignant Hyperthermia: No Meds Home Medications: Home Medication List Medication Instructions Recorded Confirmed Type Lactobacillus Acidophilus [Bacid 1 cap PO BID cap 04/12/18 Rx Acidophilus] Nystatin [Nystop Topical Powder] 1 applic TOP TID bottle 04/12/18 Rx Vancomycin 1 GM [Vancomycin 1GM in 1 gm IVPB DAILY #10 bag 04/12/18 Rx Normal Saline Addvantage] Allergies/Adverse Reactions: Allergies Allergy/AdvReac Type Severity Reaction Status Date / Time diphenhydramine Allergy RASH Verified 04/03/18 19:45 [From Benadryl] morphine Allergy RASH Verified 04/03/18 19:45 Penicillins Allergy RASH Verified 04/03/18 19:45 - Medications Medications: Current Medications Acetaminophen (Tylenol 325mg Tab) 650 mg PO Q6 PRN PRN Reason: Fever >100.4 F Dimethicone (Proshield Plus Skin Protectant) 1 applic TOP Q8 PRN PRN Reason: Excoriation Last Admin: 04/16/18 10:06 Dose: 1 applic Enoxaparin Sodium (Lovenox) 70 mg SC Q12 MARIA G; Protocol Last Admin: 04/17/18 09:35 Dose: 70 mg Cefepime HCl 1 gm/ Sodium (Chloride) 100 mls @ 100 mls/hr IVPB Q12 MARIA G; Protocol Last Admin: 04/16/18 23:30 Dose: 100 mls/hr Norepinephrine Bitartrate 4 mg (/ Dextrose) 254 mls @ 9.53 mls/hr IV .Q24H MARIA G; Protocol Last Titration: 04/16/18 15:20 Dose: 15 mcg/min, 57.15 mls/hr Sodium Chloride (Sodium Chloride 0.9%) 1,000 mls @ 999 mls/hr IV .Q1H1M MARIA G Stop: 04/17/18 17:37 Last Admin: 04/16/18 15:00 Dose: 999 mls/hr Phenylephrine HCl 30 mg/ (Sodium Chloride) 253 mls @ 10.12 mls/hr IV .Q24H MARIA G; Protocol Stop: 04/17/18 18:50 Last Titration: 04/16/18 23:18 Dose: 80 mcg/min, 40.48 mls/hr Sodium Chloride (Sodium Chloride 0.9%) 1,000 mls @ 150 mls/hr IV .Q6H40M MARIA G Stop: 04/17/18 18:51 Last Admin: 04/16/18 20:09 Dose: Not Given Sodium Chloride (Sodium Chloride 0.9%) 1,000 mls @ 1,000 mls/hr IV .Q1H MARIA G Stop: 04/18/18 00:17 Last Admin: 04/16/18 23:00 Dose: 1,000 mls/hr Norepinephrine Bitartrate 4 mg (/ Dextrose) 254 mls @ 57.15 mls/hr IV .Q4H27M MARIA G; Protocol Last Admin: 04/17/18 05:20 Dose: 30 mcg/min, 114.3 mls/hr Sodium Bicarbonate 150 meq/ (Sodium Chloride) 1,150 mls @ 150 mls/hr IV .Q7H40M MARIA G Stop: 04/18/18 01:24 Last Admin: 04/17/18 02:29 Dose: 150 mls/hr Phenylephrine HCl 30 mg/ (Sodium Chloride) 253 mls @ 40.48 mls/hr IV .Q6H15M MARIA G; Protocol Stop: 04/18/18 07:20 Last Admin: 04/17/18 07:40 Dose: 80 mcg/min, 40.48 mls/hr Lactobacillus Acidophilus (Bacid Acidophilus) 1 cap PO BID MARIA G Last Admin: 04/17/18 09:34 Dose: Not Given Nystatin (Nystop Topical Powder) 1 applic TOP TID MARIA G Last Admin: 04/17/18 09:36 Dose: 1 applic Results - Vital Signs Recent Vital Signs: Last Vital Signs Temp 94.2 F L 04/16/18 16:00 Pulse 119 H 04/17/18 10:00 Resp 18 04/17/18 10:00 BP 58/24 L 04/17/18 09:00 Pulse Ox 83 L 04/17/18 02:00 - Labs Result Diagrams: 04/17/18 06:35 04/16/18 08:47 Labs: Laboratory Results - last 24 hr 04/16/18 04/16/18 04/16/18 08:47 13:44 13:44 WBC RBC Hgb Hct MCV MCH MCHC RDW Plt Count Neutrophils % (Manual) 84 H Band Neutrophils % 4 H Lymphocytes % (Manual) 6 L Monocytes % (Manual) 5 Myelocytes % 1 H Platelet Estimate Normal Giant Platelets Present Anisocytosis (manual) Slight Tear Drop Cells Slight Ovalocytes Slight pCO2 pO2 HCO3 ABG pH ABG Total CO2 ABG O2 Saturation ABG O2 Content ABG Base Excess ABG Hemoglobin ABG Carboxyhemoglobin POC ABG HHb (Measured) ABG Methemoglobin ABG O2 Capacity Chong Test ABG Potassium A-a O2 Difference Hgb O2 Saturation Sodium Chloride Glucose Lactate Vent Mode Mechanical Rate FiO2 Tidal Volume PEEP Blood Gas Comments Crit Value Called To Crit Value Called By Crit Value Read Back Blood Gas Notified Time POC Glucose (mg/dL) Lactic Acid 8.2 H* Troponin I Procalcitonin 7.04 H Arterial Blood Potassium Urine Color Urine Clarity Urine pH Ur Specific [place] Urine Protein Urine Glucose (UA) Urine Ketones Urine Blood Urine Nitrate Urine Bilirubin Urine Urobilinogen Ur Leukocyte Esterase Urine Microscopic WBC Urine Bacteria 04/16/18 04/16/18 04/16/18 14:13 17:50 18:22 WBC RBC Hgb Hct MCV MCH MCHC RDW Plt Count Neutrophils % (Manual) Band Neutrophils % Lymphocytes % (Manual) Monocytes % (Manual) Myelocytes % Platelet Estimate Giant Platelets Anisocytosis (manual) Tear Drop Cells Ovalocytes pCO2 pO2 HCO3 ABG pH ABG Total CO2 ABG O2 Saturation ABG O2 Content ABG Base Excess ABG Hemoglobin ABG Carboxyhemoglobin POC ABG HHb (Measured) ABG Methemoglobin ABG O2 Capacity Chong Test ABG Potassium A-a O2 Difference Hgb O2 Saturation Sodium Chloride Glucose Lactate Vent Mode Mechanical Rate FiO2 Tidal Volume PEEP Blood Gas Comments Crit Value Called To Crit Value Called By Crit Value Read Back Blood Gas Notified Time POC Glucose (mg/dL) Lactic Acid 9.2 H* Troponin I 0.1010 Procalcitonin Arterial Blood Potassium Urine Color Straw Urine Clarity Clear Urine pH 7.0 Ur Specific [place] 1.009 Urine Protein Negative Urine Glucose (UA) Neg Urine Ketones Negative Urine Blood Negative Urine Nitrate Negative Urine Bilirubin Negative Urine Urobilinogen 0.2-1.0 Ur Leukocyte Esterase Neg Urine Microscopic WBC 2 Urine Bacteria Rare 04/17/18 04/17/18 04/17/18 01:05 04:17 06:35 WBC 53.7 H* RBC 3.95 Hgb 11.3 L D Hct 37.4 MCV 94.8 MCH 28.7 MCHC 30.3 L RDW 17.3 H Plt Count 291 D Neutrophils % (Manual) Band Neutrophils % Lymphocytes % (Manual) Monocytes % (Manual) Myelocytes % Platelet Estimate Giant Platelets Anisocytosis (manual) Tear Drop Cells Ovalocytes pCO2 50 H 38 pO2 31 L* 29 L* HCO3 5.9 L* 9.0 L* ABG pH 6.93 L* 7.07 L* ABG Total CO2 12.0 L 12.2 L ABG O2 Saturation 45.4 L 46.0 L ABG O2 Content 8.9 L ABG Base Excess -21.9 L -18.5 L ABG Hemoglobin 14.2 ABG Carboxyhemoglobin 1.3 POC ABG HHb (Measured) 52.2 H ABG Methemoglobin 2.0 ABG O2 Capacity 19.3 Chong Test Yes Yes ABG Potassium 6.7 H* A-a O2 Difference 620.0 637.0 Hgb O2 Saturation 44.5 L Sodium 137.0 Chloride 106.0 Glucose 115 H Lactate 11.7 H* Vent Mode A/c A/c Mechanical Rate 12 18 FiO2 100.0 100.0 Tidal Volume 450 500 PEEP 5 Blood Gas Comments Pos mixed venous Possible mixed venous Crit Value Called To Jonatan hilario md Crit Value Called By 333 333 Crit Value Read Back Y Y Blood Gas Notified Time 108 511 POC Glucose (mg/dL) Lactic Acid Troponin I Procalcitonin Arterial Blood Potassium 6.7 H* Urine Color Urine Clarity Urine pH Ur Specific [place] Urine Protein Urine Glucose (UA) Urine Ketones Urine Blood Urine Nitrate Urine Bilirubin Urine Urobilinogen Ur Leukocyte Esterase Urine Microscopic WBC Urine Bacteria 04/17/18 08:29 WBC RBC Hgb Hct MCV MCH MCHC RDW Plt Count Neutrophils % (Manual) Band Neutrophils % Lymphocytes % (Manual) Monocytes % (Manual) Myelocytes % Platelet Estimate Giant Platelets Anisocytosis (manual) Tear Drop Cells Ovalocytes pCO2 pO2 HCO3 ABG pH ABG Total CO2 ABG O2 Saturation ABG O2 Content ABG Base Excess ABG Hemoglobin ABG Carboxyhemoglobin POC ABG HHb (Measured) ABG Methemoglobin ABG O2 Capacity Chong Test ABG Potassium A-a O2 Difference Hgb O2 Saturation Sodium Chloride Glucose Lactate Vent Mode Mechanical Rate FiO2 Tidal Volume PEEP Blood Gas Comments Crit Value Called To Crit Value Called By Crit Value Read Back Blood Gas Notified Time POC Glucose (mg/dL) 135 H Lactic Acid Troponin I Procalcitonin Arterial Blood Potassium Urine Color Urine Clarity Urine pH Ur Specific [place] Urine Protein Urine Glucose (UA) Urine Ketones Urine Blood Urine Nitrate Urine Bilirubin Urine Urobilinogen Ur Leukocyte Esterase Urine Microscopic WBC Urine Bacteria
[2018-04-17] MEDS: Cefepime 1 GM in Sodium Chloride 0.9% 100 ML IVPB SCH (10:33)
[2018-04-17 10:56] LABS: ALBUMIN 1.9 g/dL (3.5-5.0); CALCIUM 6.3 mg/dL (8.4-10.2)
[2018-04-17 10:57] LABS: ALB/GLOB RATIO 0.8 (1.0-2.1)
[2018-04-17] MEDS ORDERED: Meropenem 500 MG in Sodium Chloride 0.9% 100 ML IVPB SCH (12:30)
[2018-04-17 13:25] VITALS: PULSE 105
--- NOTE | 2018-04-17 13:26 | PCM.PROC ---
Procedures Attestation:: I certify that I have explained the specified Operation(s) or Procedure(s), risks, benefits and reasonable alternatives to the Patient and/or other person responsible. The opportunity was given to ask questions and all questions answered - Arterial Line Right Femoral Aseptic technique was employed throughout the procedure: Hand Hygiene done prior to procedure, Full sterile barriers (mask, hair cover, sterile gown, sterile gloves), Chloraprep Antiseptic: 2 minute prep for Femoral Time Out Performed: Yes Pt. placed on Pulse Ox Monitor: Yes Central Line Prep: Chlorhexidine-Alcohol Combination Ultrasound Used for Placement: Yes Gauge (Size): 20 gauge Technique Used: Guide Wire Technique Secured by: Suture Post procedure dressing: Gauze Patient Tolerated Procedure: no complications Immediate Complications: none
--- NOTE | 2018-04-17 13:58 | PN ---
DATE: 04/17/2018 SUBJECTIVE: The patient seen and examined. Interim events noted. The patient remains in intensive care unit, not able to provide informative history or review of systems. PHYSICAL EXAMINATION: GENERAL: The patient is nonresponsive, in intensive care unit. HEART: S1 and S2, normal and regular. LUNGS: Good bilateral air exchange. ABDOMEN: Soft, nontender. EXTREMITIES: No edema. No calf swelling. No tenderness. No acute ischemia. CENTRAL NERVOUS SYSTEM: Exam is essentially unchanged. DIAGNOSTIC DATA: Available diagnostic data reviewed. Telemetry monitoring does not reveal significant arrhythmias. 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 The patient's prognosis is very poor. Blood pressure is not possible. Plan as ordered. Maulik Pierre MD
[2018-04-17 15:00] VITALS: BP 27/23
--- NOTE | 2018-04-17 20:39 | CARD ---
APPROVED REPORT Date of service: 04/17/2018 EKG Measurement Heart [id number] <Conclusion> Sinus tachycardia with frequent premature atrial complexes Low voltage QRS Nonspecific ST changes Abnormal ECG
--- NOTE | 2018-04-17 20:40 | CARD ---
APPROVED REPORT Date of service: 04/17/2018 EKG Measurement Heart [id number] <Conclusion> Sinus tachycardia Low voltage QRS Nonspecific ST and T wave abnormality Abnormal ECG
--- NOTE | 2018-04-17 20:57 | CARD ---
APPROVED REPORT Date of service: 04/17/2018 EXAM: Two-dimensional and M-mode echocardiogram with Doppler and color Doppler. Other Information Quality : FairRhythm : Tachycardia Technically limited study due to Very Limited Study INDICATION S/P CARDIAC ARREST Mitral Valve E/A ratio0.0 TDI E/Lateral E'0.0E/Medial E'0.0 LEFT VENTRICLE The left ventricle cavity is small. There is normal left ventricular wall thickness. The left ventricular systolic function is likely normal. The estimated ejection fraction is 50% No regional wall motion abnormalities noted.. The left ventricular diastolic function is not assessed No left ventricle thrombus noted on this study. There is no ventricular septal defect visualized. RIGHT VENTRICLE The right ventricle is normal size. The right ventricular systolic function is normal. ATRIA The left atrium size is normal. The right atrium size is normal. AORTIC VALVE The aortic valve is normal in structure. No aortic regurgitation is present. There is no aortic valvular stenosis. MITRAL VALVE The mitral valve is normal in structure. There is no mitral valve stenosis. There is no mitral valve regurgitation noted. TRICUSPID VALVE The tricuspid valve is normal in structure. There is no tricuspid valve regurgitation noted. PULMONIC VALVE The pulmonary valve is normal in structure. There is no pulmonic valvular regurgitation. GREAT VESSELS The aortic root is normal in size. The ascending aorta is normal in size. The IVC is not visualized PERICARDIAL EFFUSION There is no pericardial effusion. There is no pleural effusion. <Conclusion> Technically difficult study with limited views. The left ventricle cavity is small and tachycardic. LV function is likely normal with EF 50%.
--- NOTE | 2018-04-18 04:27 | PN ---
DATE: 04/17/2018 TIME SPENT: 45 minutes. The patient is seen and evaluated at the bedside. Past medical, surgical, social, family history reviewed. Case discussed in ICU in a.m. rounds. Events overnight reviewed. SUBJECTIVE: An 83-year-old female morbidly obese, history of cerebral palsy, endometrial CA, status post hysterectomy, cholecystectomy, status post left MediPort for chemo. Her cancer has been in remission. Advised to remove Port-a-Cath, however, was flushed two months ago. Presented to emergency room, complaining of constipation. Noted to have a rash on the left without drainage. Suspected cellulitis. Admitted to the floor. Seen by ID consult. Started on vancomycin 4 mg for coagulase-negative, gram-positive cocci. Port-a-Cath removed. 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 Later on, required pressure support with Levophed and norepinephrine. The patient was noted to be hypotensive with refractory metabolic acidosis, added sodium bicarbonate drip and given 4.5 liters IV fluid. Later on, required intubation and placed on mechanical ventilation. The patient was noted to have no palpable pulse. Blood pressure was not recordable. Maintained on 100% oxygen saturation this morning. The patient is noted to remain pulseless and without blood pressure. Noted to be pulseless electrical activity. Code was called, and ran the call for 25 minutes. Noted no improvement in the pulse or the blood pressure. Noted to have the rhythm organized. Later on, in AFib, but not palpable pulse. A post code echo obtained showed pericardial fluid with no activity. PHYSICAL EXAMINATION: HEENT: Pupils 3 to 4 mm midline. Nonreactive. Endotracheal tube in place. No secretions. HEART: Rhythm distant and faint. No audible murmur. LUNGS: Bilateral breath sounds. No audible wheezing or crepitations. The MediPort site clean. Left upper extremity site of cellulitis is with less erythema. ABDOMEN: Bowel sounds present. EXTREMITIES: Trace edema. No palpable cord. MEDICATIONS INCLUDED: Cefepime 1 g IV every 12, Tylenol 650 mg every six p.r.n., dimethicone Proshield Plus skin one application topically every eight hours p.r.n., Lovenox 70 mg subcutaneous every 12 hours, epinephrine drip, meropenem 500 mg IV every eight , norepinephrine drip titrating to systolic pressure of 100, phenylephrine drip, sodium bicarbonate 150 mEq in a liter at 50 mL per hour. LABORATORY DATA: WBC 53.7, hemoglobin 11.3, hematocrit , platelet count is 291. PT 12.8, INR 1.1, PTT 25.4. ABG: PH 7.07, pCO2 38, pO2 29, on AC 18, 500, 100%. SMA-7: Sodium 143, potassium 5.1, chloride 109, CO2 12, anion gap 27, BUN 32, creatinine 2.2. Lactic acid 20.3, AST 3675, ALT 1924, total protein 4.3, albumin 1.9. Urinalysis: Leukocyte esterase negative, wbc 2. Toxicology: Vancomycin trough level 26.5, random 13.8. Serology influenza negative. Microbiology: Wound culture, Proteus mirabilis. Blood culture, coagulase-negative Staph. Repeat the blood culture on 04/16/2018, no growth x2. Wound culture, no growth. Chest x-ray, endotracheal tube in mid trachea, nasogastric tube in the stomach, right PICC line in the SVC, small left pleural effusion underlying atelectasis, pneumonia, currently excluded, stable. ASSESSMENT AND PLAN: Presented with endotracheal tube. Neurology, septic/metabolic encephalopathy, status post cardiopulmonary resuscitation, history of cerebral palsy with weakness of upper and lower extremities, remains unresponsive after the intubation and status post cardiopulmonary resuscitation with no palpable pulse or blood pressure. Pulmonary, significant metabolic acidosis with respiratory alkalosis and hypoxemia, pleural effusion, suspected pulmonary embolism, empirically on Lovenox. Cardiac, tachycardia related to sepsis. Ejection fraction noted to be within the normal range on 04/03/2018. A post code echo shows effusion in the pericardial cavity and no left ventricular function. Hematology, leukocytosis yesterday secondary to the infarction. Cellulitis/line sepsis, gram-positive bacteremia, wound culture with Proteus Mirabilis, on meropenem and cefepime, status post vancomycin with adequate trough level. Renal, worsening renal function with refractory metabolic acidosis, on IV hydration, appreciate renal followup. Gastrointestinal, abnormal liver enzymes related to ischemia, secondary to hypotension. Endocrinology, no history of hypothyroidism or diabetes, maintain blood sugar below 180, sacral stage I decubitus. The patient remains pressure dependent on three pressors and no palpable pulse and blood pressure. Case discussed with the only family friend, who has been taking care of for the last 20 years. Updated clinical condition for prognosis. Concur with prognosis and requested to withdraw care and terminal extubation. We will concur with friend and discuss with primary physician, Dr. Maulik Pierre. Tello Saini MD
--- NOTE | 2018-04-30 09:46 | PQF ---
PROVIDER RESPONSE TEXT: Present on Admission REVIEWER QUERY TEXT: Present On Admission It is unclear whether a diagnosis was present on admission. Your help is needed. Please clarify the POA status of sacral decubitus stage 1. Such as: -- Present on admission -- Not present on admission The patient's Clinical Indicators include: DECUBITUS ULCER Query created by: Analilia Martinez on 04/18/2018 5:50 PM Electronically signed by: Maulik Pierre 04/30/2018 9:42 AM
== END 2018-04-17 16:25 | DRG 252 ==
LOC: H.ER 19:35 → H.ERHOLD 04-04 03:14 → H.MEDSURG1 04-04 12:33 → H.ICU/CCU 04-16 07:14 → H.ERHOLD 04-17 13:50 → H.ICU/CCU 04-17 14:23
PROVIDERS: ADMIT Internal Medicine; ATTEND Internal Medicine
PROC: 05PY03Z Removal of Infusion Device from Upper Vein, Open Approach (ICD-10-PCS; 2018-04-10)
PROC: 0JPV0WZ Removal of Totally Implantable Vascular Access Device from Upper Extremity Subcutaneous Tissue and Fascia, Open Approach (ICD-10-PCS; 2018-04-10)
PROC: 02HV33Z Insertion of Infusion Device into Superior Vena Cava, Percutaneous Approach (ICD-10-PCS; 2018-04-10)
PROC: 0BH17EZ Insertion of Endotracheal Airway into Trachea, Via Natural or Artificial Opening (ICD-10-PCS; principal; 2018-04-16)
PROC: 5A1935Z Respiratory Ventilation, Less than 24 Consecutive Hours (ICD-10-PCS; 2018-04-16)
PROC: 06HM33Z Insertion of Infusion Device into Right Femoral Vein, Percutaneous Approach (ICD-10-PCS; 2018-04-17)
DX: T80.211A Bloodstream infection due to central venous catheter, initial encounter (principal); A41.1 Sepsis due to other specified staphylococcus; R65.21 Severe sepsis with septic shock; G93.41 Metabolic encephalopathy; L03.114 Cellulitis of left upper limb; L03.313 Cellulitis of chest wall; N17.9 Acute kidney failure, unspecified; K56.7 Ileus, unspecified; E87.4 Mixed disorder of acid-base balance; G80.9 Cerebral palsy, unspecified; Z85.42 Personal history of malignant neoplasm of other parts of uterus; I10 Essential (primary) hypertension; Z88.5 Allergy status to narcotic agent; Z88.0 Allergy status to penicillin; Z87.891 Personal history of nicotine dependence; E86.0 Dehydration; B96.4 Proteus (mirabilis) (morganii) as the cause of diseases classified elsewhere; L89.151 Pressure ulcer of sacral region, stage 1; E63.9 Nutritional deficiency, unspecified; R94.5 Abnormal results of liver function studies; I46.9 Cardiac arrest, cause unspecified; R09.02 Hypoxemia; Y84.8 Other medical procedures as the cause of abnormal reaction of the patient, or of later complication, without mention of misadventure at the time of the procedure; Z92.21 Personal history of antineoplastic chemotherapy